=== PATIENT | female | born 1930 | race Caucasian/White ===

== ENCOUNTER → 2016-11-12 | Outpatient (CLI) | payer MEDICARE, MEDICAID | LOC: RAD 09:44 | PROVIDERS: ATTEND Surgery | DX: K85.10 Biliary acute pancreatitis without necrosis or infection (principal) | CPT/HCPCS: 74301 ==

== ENCOUNTER 2016-12-17 16:59 | Observation (INO) | payer MEDICARE, MEDICAID ==
[2016-12-17] MEDS ORDERED: ASPIRIN 81 MG TABLET, CHEWABLE PO ONE (17:02)
--- NOTE | 2016-12-17 17:33 | ER Document Report ---
ED Medical Screen (RME) - General Chief Complaint: Chest Pain Stated Complaint: CHEST PAIN Mode of Arrival: Wheelchair Information source: Patient Notes: Patient presents complaining of chest pain off and on since yesterday. Patient has shortness of breath off and on over the past several weeks. No nausea or vomiting hx: Hypertension, aplastic anemia, CHF I have greeted and performed a rapid initial assessment of this patient. A comprehensive ED assessment and evaluation of the patient, analysis of test results and completion of the medical decision making process will be conducted by additional ED providers. TRAVEL OUTSIDE OF THE [place] IN LAST 30 DAYS: No - Related Data Allergies/Adverse Reactions: No Known Allergies Allergy (Unverified 11/21/14 18:30) Past Medical History - Past Medical History Cardiac Medical History: Reports: Hx Congestive Heart Failure, Hx Hypercholesterolemia, Hx Hypertension Endocrine Medical History: Reports: Hx Hypothyroidism GI Medical History: Reports: Hx Gastroesophageal Reflux Disease Musculoskeltal Medical History: Reports Hx Arthritis Psychiatric Medical History: Reports: Hx Dementia Past Surgical History: Reports: Hx Abdominal Surgery - hernia repair, Hx Hysterectomy - Immunizations Hx Diphtheria, Pertussis, Tetanus Vaccination: No Physical Exam - Vital signs Vitals: Temp Pulse Resp BP Pulse Ox 98.0 F 117 H 20 111/68 94 12/17/16 17:25 12/17/16 17:25 12/17/16 17:25 12/17/16 17:25 12/17/16 17:25 - Cardiovascular Rhythm: Tachycardia Heart sounds: S1 appreciated, S2 appreciated Course - Vital Signs Vital signs: Temp Pulse Resp BP Pulse Ox 98.0 F 117 H 20 111/68 94 12/17/16 17:25 12/17/16 17:25 12/17/16 17:25 12/17/16 17:25 12/17/16 17:25
[2016-12-17 18:07] LABS: ABSOLUTE EOSINOPHILS # (AUTO) 0.2 10^3/uL (0.0-0.6); ABSOLUTE LYMPHOCYTES (AUTO) 1.4 10^3/uL (0.5-4.7); ABSOLUTE MONOCYTES (AUTO) 0.4 10^3/uL (0.1-1.4); ABSOLUTE NEUT (AUTO) 3.3 10^3/uL (1.7-8.2); BASOPHILS % (AUTO) 0.3 % (0-2); HEMATOCRIT 41.1 % (36.0-47.0); HEMOGLOBIN 13.3 g/dL (12.0-15.5); HGB HCT DIFFERENCE -1.2; MEAN CORPUSCULAR HEMOGLOBIN 27.8 pg (27.0-33.4); MEAN CORPUSCULAR HGB CONC 32.4 g/dL (32.0-36.0); MEAN CORPUSCULAR VOLUME 86 fl (80-97); MONOCYTES % (AUTO) 7.5 % (3-13); RED BLOOD COUNT 4.79 10^6/uL (3.72-5.28); RED CELL DISTRIBUTION WIDTH 15.3 % (11.5-14.0); SEGMENTED NEUTROPHILS % (AUTO) 62.2 % (42-78); WHITE BLOOD COUNT 5.3 10^3/uL (4.0-10.5)
[2016-12-17 18:28] LABS: ALANINE AMINOTRANSFERASE 19 U/L (9-52); ALBUMIN 4.1 g/dL (3.5-5.0); ALKALINE PHOSPHATASE 94 U/L (38-126); ANION GAP 10 (5-19); ASPARTATE AMINO TRANSFERASE 20 U/L (14-36); BILIRUBIN,TOTAL 0.5 mg/dL (0.2-1.3); BLOOD UREA NITROGEN 26 mg/dL (7-20); CALCIUM 9.7 mg/dL (8.4-10.2); CARBON DIOXIDE 27 mmol/L (22-30); CHLORIDE 104 mmol/L (98-107); CREATINE KINASE 39 U/L (30-135); CREATININE RESULT 0.86 mg/dL (0.52-1.25); GLUCOSE 98 mg/dL (75-110); POTASSIUM 4.1 mmol/L (3.6-5.0); SODIUM 140.8 mmol/L (137-145); TOTAL PROTEIN 6.4 g/dL (6.3-8.2)
[2016-12-17 18:37] LABS: CREATINE KINASE MB 1.87 ng/mL (<4.55)
--- NOTE | 2016-12-17 18:37 | ER Document Report ---
ED General - General Chief Complaint: Chest Pain Stated Complaint: CHEST PAIN Mode of Arrival: Wheelchair Information source: Patient, Relative Notes: This is a very pleasant 86-year-old female who been presents to the emergency department with chief complaint of chest pain and shortness of breath. She is somewhat of a difficult historian secondary to memory problems and mild dementia , but the history is augmented by her son who is a good historian. Patient states that this morning at about 0800 she developed some pain in the left anterior chest. This was associated with shortness of breath. Also at this time she had a near syncopal episode but she did not lose consciousness. She was able to sit down outside and catch her breath. This afternoon she had a regular scheduled follow-up appointment with her primary care physician. During that appointment she mentioned that she had some chest pain and shortness of breath today. Also at the appointment she was noted to be tachycardic with a pulse rate in the 120s. At that point it was recommended that she present to the emergency department for further evaluation. Currently the patient denies any active chest pain and states that she is feeling much better. She has no shortness of breath. She denies any recent fevers chills cough or congestion. TRAVEL OUTSIDE OF THE [place] IN LAST 30 DAYS: No - Related Data Allergies/Adverse Reactions: No Known Allergies Allergy (Unverified 11/21/14 18:30) Past Medical History - General Information source: Patient, Relative - Social History Smoking Status: Never Smoker Frequency of alcohol use: None Drug Abuse: None Family History: Reviewed & Not Pertinent, Hypertension Patient has suicidal ideation: No Patient has homicidal ideation: No - Past Medical History Cardiac Medical History: Reports: Hx Congestive Heart Failure, Hx Hypercholesterolemia, Hx Hypertension Endocrine Medical History: Reports: Hx Hypothyroidism Renal/ Medical History: Denies: Hx Peritoneal Dialysis GI Medical History: Reports: Hx Gastroesophageal Reflux Disease Musculoskeltal Medical History: Reports Hx Arthritis Psychiatric Medical History: Reports: Hx Dementia Past Surgical History: Reports: Hx Abdominal Surgery - hernia repair, Hx Hysterectomy - Immunizations Hx Diphtheria, Pertussis, Tetanus Vaccination: No Hx Pneumococcal Vaccination: 11/23/14 Review of Systems - Review of Systems Notes: REVIEW OF SYSTEMS: CONSTITUTIONAL : Denies fever, chills, or sweats. Denies recent illness. EENT: Denies eye, ear, throat, or mouth pain or symptoms. Denies nasal or sinus congestion. CARDIOVASCULAR: As per history of present illness RESPIRATORY: Denies cough, cold, or chest congestion. Patient reports occasional wheezing. Episode of dyspnea as per history of present illness GASTROINTESTINAL: Denies abdominal pain. Denies nausea, vomiting, or diarrhea. Denies constipation. GENITOURINARY: Denies difficulty urinating, painful urination, burning, frequency, or blood in urine. MUSCULOSKELETAL: Denies neck or back pain or joint pain. She has been seeing her primary care physician for lower extremity edema. SKIN: Denies rash or skin lesions. HEMATOLOGIC : Denies easy bruising or bleeding. LYMPHATIC: Denies swollen, enlarged glands. NEUROLOGICAL: Denies altered mental status or loss of consciousness. Denies headache. Denies weakness or paralysis or loss of use of either side. PSYCHIATRIC: Denies anxiety or stress or depression. ALL OTHER SYSTEMS REVIEWED AND NEGATIVE. Physical Exam - Vital signs Vitals: Temp Pulse Resp BP Pulse Ox 98.0 F 117 H 20 111/68 94 12/17/16 17:25 12/17/16 17:25 12/17/16 17:25 12/17/16 17:25 12/17/16 17:25 - Notes Notes: PHYSICAL EXAMINATION: GENERAL: Well-appearing elderly female, very pleasant and conversant, well- nourished and in no acute distress. HEAD: Atraumatic, normocephalic. EYES: Pupils equal round and reactive to light, extraocular movements intact, sclera anicteric, conjunctiva are normal. ENT: nares patent, oropharynx clear without exudates. Moist mucous membranes. NECK: Normal range of motion, supple without lymphadenopathy LUNGS: Breath sounds clear to auscultation bilaterally and equal. No wheezes rales or rhonchi. HEART: Regular rate and rhythm without murmurs ABDOMEN: Soft, nontender, normoactive bowel sounds. No guarding, no rebound. No masses appreciated. EXTREMITIES: Normal range of motion, 1+ BLE edema, symmetric NEUROLOGICAL: Cranial nerves grossly intact. Normal speech. Sensation intact , Motor strength equal and symmetric BUE/BLE PSYCH: Normal mood, normal affect. SKIN: Warm, Dry, normal turgor, no rashes or lesions noted. Course - Re-evaluation Re-evalutation: 12/17/16 20:48 Patient has remained stable in the emergency department and states she has no chest pain. However she has remained tachycardic with a heart rate of 111. Her troponin is negative as is her d-dimer. I am concerned with the episode of chest pain today along with the near syncope. We'll discuss with the hospitalist for admission for observation for chest pain. Patient and her are comfortable with this plan. All questions were answered. - Vital Signs Vital signs: Temp Pulse Resp BP Pulse Ox 98.0 F 117 H 20 146/106 H 93 12/17/16 17:25 12/17/16 17:25 12/17/16 21:34 12/17/16 21:34 12/17/16 21:34 - Laboratory Result Diagrams: 12/17/16 17:42 12/17/16 17:42 Laboratory results interpreted by me: 12/17/16 12/17/16 17:42 17:42 RDW 15.3 H Plt Count 130 L BUN 26 H - Diagnostic Test Radiology reviewed: Reports reviewed Radiology results interpreted by me: 12/17/16 18:39 Chest x-ray shows no acute cardiopulmonary process - EKG Interpretation by Me Additional EKG results interpreted by me: 12/17/16 18:38 EKG done at 1712 demonstrates sinus tachycardia with a rate of 112 she has LVH. There are no ST elevations or depressions present. Discharge - Discharge Clinical Impression: Chest tightness or pressure, Tachycardia, Near syncope Condition: Stable Disposition: ADMITTED OBSERVATION Admitting Provider: Hospitalist - Dr Nation Unit Admitted: Telemetry Referrals: DAVID APPLE MD [Primary Care Provider] - Follow up as needed
[2016-12-17 18:38] LABS: TROPONIN I < 0.012 ng/mL
--- NOTE | 2016-12-17 18:56 | EKG REPORT ---
SEVERITY:- ABNORMAL ECG - SINUS TACHYCARDIA WITH FIRST DEGREE AVB LAD, CONSIDER LAFB OR INFERIOR INFARCT CONSIDER LEFT VENTRICULAR HYPERTROPHY CONSIDER ANTERIOR INFARCT PROLONGED QT INTERVAL : Confirmed by: Gavin Cardenas MD 17-Dec-2016 18:56:28
[2016-12-17 19:00] LABS: PROTHROMBIN TIME 13.5 SEC (11.4-15.4)
[2016-12-17 19:01] LABS: PARTIAL THROMBOPLASTIN TIME 28.2 SEC (23.5-35.8)
[2016-12-17 19:35] LABS: D-DIMER < 0.27 ug/mL (0.00-0.50)
[2016-12-17] MEDS ORDERED: NORMAL SALINE 1000 ML 500 ML IV ONE (19:51)
[2016-12-17] MEDS ORDERED: METOPROLOL TARTRATE PF/INJ 5 MG/5 ML SDV IV ONE (22:11)
[2016-12-18] MEDS ORDERED: ENALAPRILAT DIHYDRATE INJ/PF 1.25 MG/1 ML SDV IV PRN (03:01)
--- NOTE | 2016-12-18 03:37 | PDOC H&P ---
History of Present Illness Admission Date/PCP: 12/17/16 22:23 DAVID APPLE MD Patient complains of: Chest pain, shortness of breath History of Present Illness: ROXANNE DE LA GARZA is a 86 year old female with underlying memory problems and dementia, along with hypertension, hyperlipidemia, hypothyroidism, reflux disease, chronic pain, chronic diastolic congestive heart failure by September 2016 echocardiogram in our facility, along with history of aplastic anemia, who presents to the emergency room for evaluation of above complaints. Patient has been discussed with emergency room physician who evaluated the patient. Patient herself is a fairly poor historian. Most questions are answered by "I' m not sure," or "I don't remember." Describes the onset of left anterior chest pain approximately 8 AM on the seventh with associated shortness of breath. Near syncopal episode. Was able to sit down and catch her breath. Went to see her primary care provider for a regularly scheduled appointment. chest pain was mentioned, and was noted to be tachycardic, with pulse rate in the 120s. Was urged to come to the emergency room for further evaluation of same. No recent fever chills, cough, congestion, nausea vomiting. Currently resting quietly, chest pain-free.. Laboratory results are listed in [employer] and are reviewed. X-ray summary results are listed below, with full report(s) reviewed. . EKG reviewed. And compared to a tracing from September 19 of last year. Social history/personal habits: . Lives with son. Retired. No use of alcohol tobacco or illicit drugs. Allergies/adverse reactions NKDA. Home medications Home medications initially autopopulated into [employer] may not accurately reflect patient's true medications, dosages, and/or frequencies. Unfortunately, patient uncertain of medications/dosages/frequencies. Order has been entered for staff to contact family, outpatient physician, and/or pharmacy to more accurately determine medications, dosages, and frequencies and to contact physician when that has been accomplished. REVIEW OF SYSTEMS: Constitutional: No fever or chills. Eyes: Wears glasses. ENT: No swallowing problems or complaints. Partial hearing loss, Right ear Pulmonary: Recent onset of mild cough and wheezing. Cardiovascular: See history and present illness. Gastrointestinal: No current complaints, including nausea or vomiting. Skin: No current complaints, including rashes. Hematologic: Easy bruising. Neurologic: No current complaints, including numbness or tingling. Musculoskeletal: Chronic back pain. Psychiatric: Mild depression; denies suicidal or homicidal ideation. Endocrine: No current complaints, including polyuria. Genitourinary: No current complaints, including dysuria. PHYSICAL EXAMINATION: 5 feet 6 inches tall. 83 kg. BMI 29.5 kg/m. Pulse 93 and regular. 142/98, manually on the left. 150/110, manually on the right. 95% saturation on room air. Respirations are 15 and unlabored. Slightly overweight otherwise well-nourished well-developed elderly female who appears a number of years younger than her stated age. Initially asleep, but awakens easily. Pleasant alert and cooperative. Mildly anxious, without agitation. Skin is warm and dry. No grossly obvious evidence of rash in areas of skin examined. No subcutaneous nodules palpated. ENT: Hearing grossly normal to normal conversation. Tongue midline on protrusion pink and slightly tacky. Eyes: No scleral icterus. Pupils equal and reactive to light at 4 mm. [place] conjunctivae. Neck is supple and nontender to gentle active range of motion and palpation. Midline trachea. No palpable thyroid nodule mass enlargement or tenderness. Lymphatic: No palpable cervical or clavicular nodes. Neck and lymphatic exams limited by patient body habitus. Psychiatric: At best fair insight into acute and chronic medical issues. Oriented to time location and why here. See history and present illness related to her being a poor historian. Lungs: Auscultation reveals clear and equal breath sounds bilaterally. No use of accessory respiratory muscles. Cardiovascular: Heart regular rate and rhythm, without gallop murmur or rub. No carotid or abdominal aortic bruits. No ankle or pedal edema. Faintly palpable dorsalis pedis pulses. Abdomen: soft, slightly distended nontender with positive bowel sounds. Unable to adequately evaluate abdomen for masses or organomegaly due to distention. Compression of neither her upper abdomen nor sternum reproduces her previously noted chest discomfort. Extremities: Feet are warm and dry. No calf tenderness to compression. No grossly obvious visual evidence of calf swelling. Gentle manipulation of lower extremities fails to reveal any obvious evidence of injury or instability to knees hips or ankles. Neurologic: Moves upper extremities grossly normally. Patellar reflexes absent. Absent Babinski. Light touch is intact at feet. Dorsiflexion and plantarflexion of feet 5 / 5 and symmetric. Past Medical History Past Medical History: See history and present illness. Cardiac Medical History: Reports: Congestive Heart Failure, Hyperlipidema, Hypertension Endocrine Medical History: Reports: Hypothyroidism GI Medical History: Reports: Gastroesophageal Reflux Disease Musculoskeltal Medical History: Reports: Arthritis Psychiatric Medical History: Reports: Dementia Hematology: Reports: Anemia - aplastic Past Surgical History Past Surgical History: Reports: Hysterectomy, Other - Cholecystostomy tube placement 2016. Social History Information Source: Patient, Emergency Med Personnel, [facility] Records Lives with: Family Smoking Status: Never Smoker Frequency of Alcohol Use: None Hx Recreational Drug Use: No Drugs: None - Advance Directive Resuscitation Status: Full Code Surrogate healthcare decision maker:: Son Sanjay. Family History Family History: Reviewed & Not Pertinent, Hypertension Parental Family History Reviewed: Yes Children Family History Reviewed: Yes Sibling(s) Family History Reviewed.: Yes Medication/Allergy Home Medications: RX: Atenolol [Tenormin 100 mg Tablet] 100 mg PO DAILY 12/18/16 RX: Bumetanide [Bumex 0.5 mg Tablet] 0.5 mg PO DAILY 12/18/16 RX: Donepezil HCl [Aricept 5 mg Tablet] 5 mg PO QPM 12/18/16 RX: Gabapentin [Neurontin 100 mg Capsule] 200 mg PO TID 12/18/16 RX: Hydrocodone/Acetaminophen [Hydrocodon-Acetaminophen 5-325] 1 each PO TIDP PRN 12/18/16 RX: Omeprazole 20 mg PO DAILY 12/18/16 RX: Paroxetine HCl [Paxil] 10 mg PO DAILY 12/18/16 RX: Spironolactone [Aldactone 25 mg Tablet] 12.5 mg PO Q12 12/18/16 Rosuvastatin Calcium [Crestor 5 mg Tablet] 5 mg PO DAILY 12/18/16 Allergies/Adverse Reactions: No Known Allergies Allergy (Unverified 11/21/14 18:30) Physical Exam Vital Signs: Temp Pulse Resp BP Pulse Ox 98.0 F 117 H 11 L 142/98 H 94 12/17/16 17:25 12/17/16 17:25 12/18/16 03:00 12/18/16 03:01 12/18/16 03:00 Results Impressions: Chest X-Ray 12/17/16 17:02 IMPRESSION: No acute cardiopulmonary findings. Assessment & Plan - Diagnosis (1) Chest pain Qualifiers: Chest pain type: unspecified Qualified Code(s): R07.9 - Chest pain, unspecified Is this a current diagnosis for this admission?: YesPlan: Patient will be placed in observation bed under chest pain protocol. Patient understands to notify staff should chest pain recur. Serial troponin's . Repeat EKG. lipid panel. I have strongly encouraged patient not to get out of bed without notifying staff , to avoid a fall with injury. Knee high SCDs for DVT prophylaxis, along with subcutaneous Lovenox. Impression and plans were discussed with patient, who concurs. Time spent in evaluation and management of patient: 60 minutes. (2) Hypertensive urgency Is this a current diagnosis for this admission?: YesPlan: Patient states she has not had her evening medication. Gradual blood pressure control. Vital sign parameters have been listed in admission orders. (3) Near syncope Is this a current diagnosis for this admission?: YesPlan: Orthostatic vital signs every 4 hours while awake, starting at 7 AM today. (4) Dementia Qualifiers: Dementia type: unspecified type Dementia behavioral disturbance: without behavioral disturbance Qualified Code(s): F03.90 - Unspecified dementia without behavioral disturbance Is this a current diagnosis for this admission?: YesPlan: Follow clinically at this point in time. (5) Chronic diastolic CHF (congestive heart failure) Is this a current diagnosis for this admission?: YesPlan: No evidence of acute exacerbation of same. Follow clinically at this point in time.Resume home medications as appropriate once these have been determined and reviewed. (6) Hypothyroidism Qualifiers: Hypothyroidism type: unspecified Qualified Code(s): E03.9 - Hypothyroidism, unspecified Is this a current diagnosis for this admission?: YesPlan: TSH pending. Resume home medications as appropriate once these have been determined and reviewed. (7) Thrombocytopenia Is this a current diagnosis for this admission?: YesPlan: Long-standing problem for patient. History of aplastic anemia, per old records.
[2016-12-18 04:29] LABS: CHOLESTEROL 158.21 mg/dL (0-200); Direct HDL 45 mg/dL (>40); TRIGLYCERIDES 122 mg/dL (<150)
[2016-12-18 04:40] LABS: DIRECT LDL 99 mg/dL (<100)
[2016-12-18] MEDS ORDERED: LANSOPRAZOLE 30 MG TAB.RAP.DR PO SCH (06:00)
[2016-12-18] MEDS: ACETAMINOPHEN 325 MG TABLET PO PRN ×2 (06:40→11:04)
[2016-12-18] MEDS ORDERED: INFLUENZA ADLT QUAD (36MOS+) 2016-17 VAC 0.5 ML SYR IM PRN (06:46)
--- NOTE | 2016-12-18 08:09 | EKG REPORT ---
SEVERITY:- ABNORMAL ECG - SINUS RHYTHM FIRST DEGREE AV BLOCK LAD, CONSIDER LAFB OR INFERIOR INFARCT : Confirmed by: Gavin Cardenas MD 18-Dec-2016 08:08:22
[2016-12-18] MEDS ORDERED: ENOXAPARIN SODIUM INJ 40 MG/0.4 ML DISP.SYRIN SUBCUT SCH (10:00)
[2016-12-18] MEDS ORDERED: ASPIRIN 81 MG TABLET, ENT COATED PO SCH (10:00)
[2016-12-18 11:59] VITALS: BP 150/110
--- NOTE | 2016-12-18 13:52 | EKG REPORT ---
SEVERITY:- ABNORMAL ECG - SINUS RHYTHM FIRST DEGREE AV BLOCK LAD, CONSIDER LAFB OR INFERIOR INFARCT PROBABLE ANTEROSEPTAL INFARCT, AGE INDETERM : Confirmed by: Gavin Cardenas MD 18-Dec-2016 13:50:49
--- NOTE | 2016-12-18 14:02 | PDOC DISCHARGE SUMMARY ---
General - Admit/Disc Date/PCP Admission Date/Primary Care Provider: 12/18/16 03:21 DAVID APPLE MD Discharge Date: 12/18/16 - Discharge Diagnosis (1) Chest pain Is this a current diagnosis for this admission?: YesSummary: Ruled out for acute coronary syndrome Troponins < 0.12. Symptoms more suggestive of GERD. She takes omeprazole as needed. Son did not wish to have her do stress test (2) Hypertension Is this a current diagnosis for this admission?: YesSummary: Patient is presently normotensive continue current medications. (3) Chronic diastolic heart failure Is this a current diagnosis for this admission?: YesSummary: Patient's last echo here 09/25. Showed normal LVEF and mild grade II/IV diastolic heart failure - Additional Information Resuscitation Status: Full Code Discharge Diet: Regular Discharge Activity: Activity As Tolerated, Balance Activity w/Rest Home Medications: Atenolol [Tenormin 100 mg Tablet] 100 mg PO DAILY 12/18/16 Bumetanide [Bumex 0.5 mg Tablet] 0.5 mg PO DAILY 12/18/16 Donepezil HCl [Aricept 5 mg Tablet] 5 mg PO QPM 12/18/16 Gabapentin [Neurontin 100 mg Capsule] 200 mg PO TID 12/18/16 Hydrocodone/Acetaminophen [Hydrocodon-Acetaminophen 5-325] 1 each PO TIDP PRN Omeprazole 20 mg PO DAILY 12/18/16 Paroxetine HCl [Paxil] 10 mg PO DAILY 12/18/16 Rosuvastatin Calcium [Crestor 5 mg Tablet] 5 mg PO DAILY 12/18/16 Spironolactone [Aldactone 25 mg Tablet] 12.5 mg PO Q12 12/18/16 History of Present Illness Patient complains of: Chest pain History of Present Illness: ROXANNE DE LA GARZA is a 86 year old female with history of GERD, essential hypertension, chronic grade II/IV diastolic heart failure and dementia. She lives with her son, who had taken her to see her primary care provider and sent her to the ED for further workup. Initial ecg and troponin were negative. The patient was referred to the hospitalist's service for observation admission. Hospital Course Hospital Course: Patient was admitted to [facility] on telemetry. She had no further chest pain or shortness of breath. No events on telemetry. She was ambulatory on room air. Her vitals remained stable. Serial troponins were done and were all < 0.12. Patient remained pleasantly confused. Discussed with son. He wishes medical management for her so stress test was done due to her age and dementia. Physical Exam Vital Signs: Temp Pulse Resp BP Pulse Ox 97.4 F 96 16 150/110 H 94 12/18/16 11:55 12/18/16 11:55 12/18/16 11:55 12/18/16 11:55 12/18/16 11:55 Intake & Output 12/17/16 12/18/16 12/19/16 06:59 06:59 06:59 Intake Total 3 Balance 3 General appearance: PRESENT: no acute distress, well-developed, well-nourished Head exam: PRESENT: atraumatic, normocephalic Eye exam: PRESENT: conjunctiva pink, EOMI, PERRLA. ABSENT: scleral icterus Ear exam: PRESENT: normal external ear exam Mouth exam: PRESENT: moist, tongue midline Neck exam: ABSENT: carotid bruit, JVD, lymphadenopathy, thyromegaly Respiratory exam: PRESENT: clear to auscultation baldemar. ABSENT: rales, rhonchi, wheezes Cardiovascular exam: PRESENT: RRR. ABSENT: diastolic murmur, rubs, systolic murmur Pulses: PRESENT: normal dorsalis pedis pul Vascular exam: PRESENT: normal capillary refill GI/Abdominal exam: PRESENT: normal bowel sounds, soft. ABSENT: distended, guarding, mass, organolmegaly, rebound, tenderness Rectal exam: PRESENT: deferred Extremities exam: PRESENT: full ROM. ABSENT: calf tenderness, clubbing, pedal edema Neurological exam: PRESENT: alert, awake, oriented to person, CN II-XII grossly intact Psychiatric exam: PRESENT: appropriate affect, normal mood. ABSENT: homicidal ideation, suicidal ideation Skin exam: PRESENT: dry, intact, warm. ABSENT: cyanosis, rash Results Laboratory Results: 12/18/16 12/18/16 03:29 03:29 Triglycerides 122 Cholesterol 158.21 LDL Cholesterol Direct 99 VLDL Cholesterol 24.0 HDL Cholesterol 45 TSH 0.91 12/18/16 12/18/16 03:29 09:35 Troponin I < 0.012 < 0.012 Impressions: Chest X-Ray 12/17/16 17:02 IMPRESSION: No acute cardiopulmonary findings. Qualifiers PATEINT BEING DISCHARGED WITH ANY OF THE FOLLOWING DIAGNOSIS?: No Plan Discharge Plan: Home with son Time Spent: Less than 30 Minutes
== END 2016-12-18 13:17 | disposition home or self-care (01) ==
LOC: ER 16:59 → EH 22:23 → UNDOADMOB 22:23 → EH 12-18 03:21 → 3N 12-18 05:52
PROVIDERS: ADMIT Family Medicine; ATTEND Family Medicine
DX: R07.9 Chest pain, unspecified (principal); I16.0 Hypertensive urgency; R55 Syncope and collapse; R06.02 Shortness of breath; D69.6 Thrombocytopenia, unspecified; E78.5 Hyperlipidemia, unspecified; E03.9 Hypothyroidism, unspecified; K21.9 Gastro-esophageal reflux disease without esophagitis; G89.29 Other chronic pain; I50.32 Chronic diastolic (congestive) heart failure; F03.90 Unspecified dementia, unspecified severity, without behavioral disturbance, psychotic disturbance, mood disturbance, and anxiety; Z79.899 Other long term (current) drug therapy; Z90.710 Acquired absence of both cervix and uterus; Z23 Encounter for immunization
CPT/HCPCS: 93005 ×2; 99285; 96361; 96374; 36415 ×2; 82553; 82550; 84443; 85025; 85610; 85730; 80053; 84484 ×2; 85379; 80061; 71010; 90686; 93010 ×2; G0378 ×2; A9270 ×3; J3490 ×2; J7030

== ENCOUNTER 2017-05-19 12:07 | Inpatient (IN) | payer MEDICARE, MEDICAID ==
--- NOTE | 2017-05-19 12:51 | RADIOLOGY REPORT (SQ) ---
EXAM DESCRIPTION: CHEST SINGLE VIEW COMPLETED DATE/TIME: 05/19/2017 12:24 pm REASON FOR STUDY: bed mp stroke alert COMPARISON: Chest films 09/19/2016, 12/17/2016 EXAM PARAMETERS: NUMBER OF VIEWS: One view. TECHNIQUE: Single frontal radiographic view of the chest acquired. RADIATION DOSE: NA LIMITATIONS: None. FINDINGS: LUNGS AND PLEURA: No opacities, masses or pneumothorax. No pleural effusion. MEDIASTINUM AND HILAR STRUCTURES: No masses. Contour normal. HEART AND VASCULAR STRUCTURES: Mild cardiomegaly, stable BONES: Convex leftward lower thoracic/lumbar curvature HARDWARE: None in the chest. OTHER: No other significant finding. IMPRESSION: NO ACUTE RADIOGRAPHIC FINDING IN THE CHEST. TECHNICAL DOCUMENTATION: JOB ID: [id number]
--- NOTE | 2017-05-19 12:52 | RADIOLOGY REPORT (SQ) ---
EXAM DESCRIPTION: CT HEAD WITHOUT COMPLETED DATE/TIME: 05/19/2017 12:28 pm REASON FOR STUDY: bed mp stroke alert COMPARISON: November 2014 TECHNIQUE: Axial images acquired through the brain without intravenous contrast. Images reviewed wi th bone, brain and subdural windows. Images stored on PACS. All CT scanners at this facility use dose modulation, iterative reconstruction, and/or weight based d osing when appropriate to reduce radiation dose to as low as reasonably achievable (ALARA). [facility]: Dose Right [facility]: CareDose [facility]: Dose Right [facility]: Teradose 4D [facility]: Smart Penxy RADIATION DOSE: Up-to-date CT equipment and radiation dose reduction techniques were employed. CTDIv ol: 64.6 mGy. DLP: 1680 mGy-cm. mGy. LIMITATIONS: None. FINDINGS: VENTRICLES: Prominent. CEREBRUM: No masses. No hemorrhage. No midline shift. Areas of low density in the white matter mos t likely due to chronic micro-vascular ischemic change. No evidence for acute infarction. CEREBELLUM: No masses. No hemorrhage. No alteration of density. No evidence for acute infarction. EXTRAAXIAL SPACES: Mild age-related involutional change. No fluid collections. No masses. ORBITS AND GLOBE: No intra- or extraconal masses. Normal contour of globe without masses. CALVARIUM: No fracture. PARANASAL SINUSES: No fluid or mucosal thickening. SOFT TISSUES: No mass or hematoma. OTHER: No other significant finding. IMPRESSION: MILD CHRONIC CHANGES OF ATROPHY AND MICROVASCULAR ISCHEMIA. NO ACUTE PROCESS. TECHNICAL DOCUMENTATION: JOB ID: [id number] Quality ID # [id number]: Final reports with documentation of one or more dose reduction techniques (e.g., Au tomated exposure control, adjustment of the mA and/or kV according to patient size, use of iterative reconstruction technique) 2010 [employer]- All Rights Reserved
[2017-05-19 13:11] LABS: ABSOLUTE LYMPHOCYTES (AUTO) 0.6 10^3/uL (0.5-4.7); ABSOLUTE MONOCYTES (AUTO) 0.4 10^3/uL (0.1-1.4); ABSOLUTE NEUT (AUTO) 5.9 10^3/uL (1.7-8.2); BASOPHILS % (AUTO) 0.2 % (0-2); EOSINOPHILS % (AUTO) 0.5 % (0-6); HEMATOCRIT 43.4 % (36.0-47.0); HEMOGLOBIN 13.5 g/dL (12.0-15.5); HGB HCT DIFFERENCE -2.9; LYMPHOCYTES % (AUTO) 8.5 % (13-45); MEAN CORPUSCULAR HEMOGLOBIN 26.3 pg (27.0-33.4); MEAN CORPUSCULAR HGB CONC 31.1 g/dL (32.0-36.0); MEAN CORPUSCULAR VOLUME 85 fl (80-97); MONOCYTES % (AUTO) 5.9 % (3-13); PROTHROMBIN TIME 13.1 SEC (11.4-15.4); RED BLOOD COUNT 5.13 10^6/uL (3.72-5.28); RED CELL DISTRIBUTION WIDTH 15.9 % (11.5-14.0); SEGMENTED NEUTROPHILS % (AUTO) 84.9 % (42-78); WHITE BLOOD COUNT 6.9 10^3/uL (4.0-10.5)
[2017-05-19 13:12] LABS: PARTIAL THROMBOPLASTIN TIME 25.9 SEC (23.5-35.8)
[2017-05-19] MEDS ORDERED: ACETAMINOPHEN 325 MG TABLET PO ONE (13:18)
--- NOTE | 2017-05-19 13:24 | ER Document Report ---
ED General - General Chief Complaint: S/S of Possible Stroke Stated Complaint: POSSIBLE STROKE Time Seen by Provider: 05/19/17 12:56 Mode of Arrival: Medic Information source: Patient, Relative TRAVEL OUTSIDE OF THE [place] IN LAST 30 DAYS: No - HPI Notes: Patient is a 86-year-old female presents to emergency department with report of a history of hypertension and dementia with report of patient having an altered state when she was on the toilet and went unconscious but breathing for anywhere from 5-10 minutes, she was minimally responsive for about 15 minutes and then recovered by the time EMS arrived to pick her up. The patient had a normal blood sugar of 106 and was otherwise hypertensive 184/105 when she was picked up. There was shaking, but no obvious seizure activity. Patient on questioning describes a mild headache, not the worst of her life. There is no head injury. She denies any neck pain or chest pain or abdominal pain. There was more of a generalized weakness, and patient denies any one- sided weakness or numbness. - Related Data Allergies/Adverse Reactions: No Known Allergies Allergy (Unverified 11/21/14 18:30) Past Medical History - General Information source: Patient, Relative Cannot obtain history due to: Dementia - Social History Smoking Status: Never Smoker Frequency of alcohol use: None Drug Abuse: None Lives with: Family Family History: Reviewed & Not Pertinent, Hypertension - Past Medical History Cardiac Medical History: Reports: Hx Congestive Heart Failure, Hx Hypercholesterolemia, Hx Hypertension Endocrine Medical History: Reports: Hx Hypothyroidism Renal/ Medical History: Denies: Hx Peritoneal Dialysis GI Medical History: Reports: Hx Gastroesophageal Reflux Disease Musculoskeltal Medical History: Reports Hx Arthritis Psychiatric Medical History: Reports: Hx Dementia, Hx Depression Past Surgical History: Reports: Hx Abdominal Surgery - hernia repair, Hx Hysterectomy, Other - Cholecystostomy tube placement 2015. - Immunizations Hx Diphtheria, Pertussis, Tetanus Vaccination: No Hx Pneumococcal Vaccination: 11/23/14 Review of Systems - Review of Systems Notes: no and is not . EMS on by REVIEW OF SYSTEMS: CONSTITUTIONAL : Denies fever, chills, or sweats. Denies recent illness. EENT: Denies eye, ear, throat, or mouth pain or symptoms. Denies nasal or sinus congestion or discharge. Denies throat, tongue, or mouth swelling or difficulty swallowing. CARDIOVASCULAR: Denies chest pain. Denies palpitations or racing or irregular heart beat. Denies ankle edema. RESPIRATORY: Denies cough, cold, or chest congestion. Denies shortness of breath, difficulty breathing, or wheezing. GASTROINTESTINAL: Denies abdominal pain or distention. Denies nausea, vomiting , or diarrhea. Denies blood in vomitus, stools, or per rectum. Denies black, tarry stools. Denies constipation. GENITOURINARY: Denies difficulty urinating, painful urination, burning, frequency, blood in urine, or discharge. FEMALE GENITOURINARY: Denies vaginal bleeding, heavy or abnormal periods, irregular periods. Denies vaginal discharge or odor. MUSCULOSKELETAL: Denies back or neck pain or stiffness. Denies joint pain or swelling. SKIN: Denies rash, lesions or sores. HEMATOLOGIC : Denies easy bruising or bleeding. LYMPHATIC: Denies swollen, enlarged glands. NEUROLOGICAL: Denies dizziness or lightheadedness. Denies weakness or paralysis or loss of use of either side. Denies problems with gait or speech. Denies sensory loss, numbness, or tingling. No obvious seizure activity. PSYCHIATRIC: Denies anxiety or stress. Denies depression, suicidal ideation, or homicidal ideation. ALL OTHER SYSTEMS REVIEWED AND NEGATIVE. Dictation was performed using [employer] voice recognition software Physical Exam - Vital signs Vitals: Temp 98.6 F 05/19/17 12:49 - Notes Notes: PHYSICAL EXAMINATION: GENERAL: Well-appearing, well-nourished and in no acute distress. HEAD: Atraumatic, normocephalic. EYES: Pupils equal round and reactive to light, extraocular movements intact, conjunctiva are normal. ENT: Nares patent, oropharynx clear without exudates. Moist mucous membranes. NECK: Normal range of motion, supple without lymphadenopathy no carotid bruits. LUNGS: Breath sounds clear to auscultation bilaterally and equal. No wheezes rales or rhonchi. HEART: Regular rate and rhythm without murmurs ABDOMEN: Soft, nontender, nondistended abdomen. No guarding, no rebound. No masses appreciated. Obese Female : deferred Musculoskeletal: Normal range of motion, no pitting or edema. No cyanosis. NEUROLOGICAL: Cranial nerves grossly intact. Normal speech. Normal sensory, motor exams. Alert to person and place, per her baseline PSYCH: Normal mood, normal affect. SKIN: Warm, Dry, normal turgor, no rashes or lesions noted. Course - Re-evaluation Re-evalutation: 05/19/17 15:[address] negative for acute intracranial abnormality. There was evidence for microvascular changes consistent with age and history of dementia. Chest x-ray was negative. Patient remained mildly hypertensive repeat blood pressure 188/92. No evidence for congestive heart failure. Patient was watched on the field reviewer without any noted ectopy or other abnormality. Cannot exclude TIA versus cardiac arrhythmia. There is no evidence for hypoglycemia or significant anemia or renal insufficiency or UTI. Discussion was undertaken with the patient and her family and they were in agreement with admission for observation and further evaluation. Discussion was undertaken with Dr. Denton who agreed to admit the patient for further care. 05/19/17 15:13 - Vital Signs Vital signs: Temp Pulse Resp BP Pulse Ox 98.6 F 78 23 H 163/47 H 96 05/19/17 12:49 05/19/17 15:00 05/19/17 15:00 05/19/17 15:00 05/19/17 15:00 - Laboratory Result Diagrams: 05/19/17 12:59 05/19/17 12:59 Laboratory results interpreted by me: 05/19/17 05/19/17 05/19/17 12:59 12:59 13:05 MCH 26.3 L MCHC 31.1 L RDW 15.9 H Plt Count 134 L Seg Neutrophils % 84.9 H Lymphocytes % 8.5 L Carbon Dioxide 33 H Urine Protein 30 H Urine Ascorbic Acid 20 H - EKG Interpretation by Ny EKG shows normal: Sinus rhythm Additional EKG results interpreted by al: 05/19/17 13:23 EKG as interpreted by al showed normal sinus rhythm heart rate of 65. There was no gross evidence for acute AR or ischemia identified. There is a left anterior fascicular block noted with borderline left ventricular hypertrophy. There is no significant change from previous EKG reviewed from 12/18/16. Critical Care Note - Critical Care Note Total time excluding time spent on procedures (mins): 33 Discharge - Discharge Clinical Impression: Hypertension Syncope Qualifiers: Syncope type: unspecified Qualified Code(s): R55 - Syncope and collapse Admitting Provider: Hospitalist
[2017-05-19 13:26] LABS: APPEARANCE,URINE SLIGHTLY-CLOUDY; BILIRUBIN,URINE NEGATIVE (NEGATIVE); GLUCOSE, URINE NEGATIVE (NEGATIVE); KETONES,URINE NEGATIVE (NEGATIVE); LEUKOCYTE ESTERASE,URINE NEGATIVE (NEGATIVE); NITRITE,URINE NEGATIVE (NEGATIVE); PROTEIN,URINE 30 mg/dL (NEGATIVE); UROBILINOGEN,URINE NEGATIVE mg/dL (<2.0)
[2017-05-19 13:27] LABS: ALANINE AMINOTRANSFERASE 25 U/L (9-52); ALBUMIN 4.3 g/dL (3.5-5.0); ALKALINE PHOSPHATASE 97 U/L (38-126); ANION GAP 9 (5-19); ASPARTATE AMINO TRANSFERASE 23 U/L (14-36); BILIRUBIN,DIRECT 0.2 mg/dL (0.0-0.4); BILIRUBIN,TOTAL 0.6 mg/dL (0.2-1.3); BLOOD UREA NITROGEN 20 mg/dL (7-20); CALCIUM 9.5 mg/dL (8.4-10.2); CARBON DIOXIDE 33 mmol/L (22-30); CHLORIDE 101 mmol/L (98-107); CREATINE KINASE 37 U/L (30-135); GLUCOSE 105 mg/dL (75-110); POTASSIUM 4.3 mmol/L (3.6-5.0); SODIUM 143.1 mmol/L (137-145); TOTAL PROTEIN 7.3 g/dL (6.3-8.2)
[2017-05-19 13:38] LABS: CREATINE KINASE MB 1.52 ng/mL (<4.55)
[2017-05-19 13:39] LABS: TROPONIN I < 0.012 ng/mL
[2017-05-19] MEDS ORDERED: DOCUSATE SODIUM 100 MG CAPSULE PO PRN (16:05)
[2017-05-19] MEDS ORDERED: ONDANSETRON HCL INJ/PF 4 MG/2 ML SDV IV PRN (16:05)
[2017-05-19] MEDS ORDERED: MAGNESIUM HYDROXIDE SUSP 30 ML UDCUP PO PRN (16:05)
--- NOTE | 2017-05-19 16:35 | PDOC H&P ---
History of Present Illness Patient complains of: Altered mental status according to family, who are not present and available. Hypertensive urgency History of Present Illness: Jessenia Goodrich is an 86-year-old female who to emergency department via ems with report of a past medical history of GERD,essential hypertension, chronic grade II/IV diastolic heart failure and vascular dementia with report of patient having an altered state when she was on the toilet and went unresponsive to verbal stimuli for approximately 5-10 minutes. Her daughter-in- law states her eyes glazed and she was nonverbal. She states she began shaking shortly thereafter and then became alert. She denies any injury or falls to the floor during this time. She was noted to be extremely hypertensive upon EMS arrival to her home with a blood pressure of 184/110. She has had no recent illnesses according to family were not present at room at this time. Patient on questioning describes a mild headache, not the worst of her life. There is no head injury. She denies any neck pain or chest pain or abdominal pain. There was more of a generalized weakness, and patient denies any one- sided weakness or numbness. She is presently disoriented 3, she does know her name and thinks the year is 1971. 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 Social History Information Source: Emergency Med Personnel, [facility] Records Lives with: Family Smoking Status: Never Smoker Frequency of Alcohol Use: None Hx Recreational Drug Use: No Drugs: None Hx Prescription Drug Abuse: No - Advance Directive Resuscitation Status: Full Code Surrogate healthcare decision maker:: Wagner Grace, no family is presently available Family History Family History: Hypertension Parental Family History Reviewed: No Children Family History Reviewed: Unknown Sibling(s) Family History Reviewed.: Unknown Medication/Allergy Home Medications: Atenolol [Tenormin 100 mg Tablet] 100 mg PO DAILY 12/18/16 Bumetanide [Bumex 0.5 mg Tablet] 0.5 mg PO DAILY 12/18/16 Donepezil HCl [Aricept 5 mg Tablet] 5 mg PO QPM 12/18/16 Gabapentin [Neurontin 100 mg Capsule] 200 mg PO TID 12/18/16 Hydrocodone/Acetaminophen [Hydrocodon-Acetaminophen 5-325] 1 each PO TIDP PRN Omeprazole 20 mg PO DAILY 12/18/16 Paroxetine HCl [Paxil] 10 mg PO DAILY 12/18/16 Rosuvastatin Calcium [Crestor 5 mg Tablet] 5 mg PO DAILY 12/18/16 Spironolactone [Aldactone 25 mg Tablet] 12.5 mg PO Q12 12/18/16 Allergies/Adverse Reactions: No Known Allergies Allergy (Unverified 11/21/14 18:30) Review of Systems ROS unobtainable: Due to mental status Physical Exam Vital Signs: Temp Pulse Resp BP Pulse Ox 98.6 F 78 14 138/102 H 93 05/19/17 12:49 05/19/17 15:00 05/19/17 16:01 05/19/17 16:01 05/19/17 16:01 General appearance: PRESENT: no acute distress, obese, well-developed, well- nourished Head exam: PRESENT: atraumatic, normocephalic Eye exam: PRESENT: conjunctiva pink, EOMI, PERRLA. ABSENT: scleral icterus Ear exam: PRESENT: normal external ear exam Mouth exam: PRESENT: moist, tongue midline Neck exam: ABSENT: carotid bruit, JVD, lymphadenopathy, thyromegaly Respiratory exam: PRESENT: accessory muscle use Cardiovascular exam: PRESENT: RRR. ABSENT: diastolic murmur, rubs, systolic murmur Pulses: PRESENT: normal dorsalis pedis pul Vascular exam: PRESENT: normal capillary refill GI/Abdominal exam: PRESENT: normal bowel sounds, soft. ABSENT: distended, guarding, mass, organolmegaly, rebound, tenderness Rectal exam: PRESENT: deferred Extremities exam: PRESENT: full ROM. ABSENT: calf tenderness, clubbing, pedal edema Musculoskeletal exam: PRESENT: full ROM, normal inspection Neurological exam: PRESENT: alert, altered, CN II-XII grossly intact Psychiatric exam: PRESENT: flat affect Skin exam: PRESENT: dry, intact, warm. ABSENT: cyanosis, rash Results Laboratory Results: 05/19/17 12:59 05/19/17 12:59 05/19/17 05/19/17 05/19/17 12:59 12:59 12:59 WBC 6.9 RBC 5.13 Hgb 13.5 Hct 43.4 MCV 85 MCH 26.3 L MCHC 31.1 L RDW 15.9 H Plt Count 134 L Seg Neutrophils % 84.9 H Lymphocytes % 8.5 L Monocytes % 5.9 Eosinophils % 0.5 Basophils % 0.2 Absolute Neutrophils 5.9 Absolute Lymphocytes 0.6 Absolute Monocytes 0.4 Absolute Eosinophils 0.0 Absolute Basophils 0.0 Sodium 143.1 Potassium 4.3 Chloride 101 Carbon Dioxide 33 H Anion Gap 9 BUN 20 Creatinine 0.70 Est GFR ( Amer) > 60 Est GFR (Non-Af Amer) > 60 Glucose 105 Calcium 9.5 Total Bilirubin 0.6 AST 23 ALT 25 Alkaline Phosphatase 97 Total Protein 7.3 Albumin 4.3 Lipase 226.0 Urine Color Urine Appearance Urine pH Ur Specific [place] Urine Protein Urine Glucose (UA) Urine Ketones Urine Blood Urine Nitrite Ur Leukocyte Esterase Urine WBC (Auto) Urine RBC (Auto) 05/19/17 13:05 WBC RBC Hgb Hct MCV MCH MCHC RDW Plt Count Seg Neutrophils % Lymphocytes % Monocytes % Eosinophils % Basophils % Absolute Neutrophils Absolute Lymphocytes Absolute Monocytes Absolute Eosinophils Absolute Basophils Sodium Potassium Chloride Carbon Dioxide Anion Gap BUN Creatinine Est GFR ( Amer) Est GFR (Non-Af Amer) Glucose Calcium Total Bilirubin AST ALT Alkaline Phosphatase Total Protein Albumin Lipase Urine Color YELLOW Urine Appearance SLIGHTLY-CLOUDY Urine pH 7.0 Ur Specific [place] 1.010 Urine Protein 30 H Urine Glucose (UA) NEGATIVE Urine Ketones NEGATIVE Urine Blood NEGATIVE Urine Nitrite NEGATIVE Ur Leukocyte Esterase NEGATIVE Urine WBC (Auto) 2 Urine RBC (Auto) 1 05/19/17 05/19/17 12:59 12:59 Creatine Kinase 37 CK-MB (CK-2) 1.52 Troponin I < 0.012 Impressions: Chest X-Ray 05/19/17 12:12 IMPRESSION: NO ACUTE RADIOGRAPHIC FINDING IN THE CHEST. Head CT 05/19/17 12:12 IMPRESSION: MILD CHRONIC CHANGES OF ATROPHY AND MICROVASCULAR ISCHEMIA. NO ACUTE PROCESS. Assessment & Plan - Diagnosis (1) Altered awareness, transient Is this a current diagnosis for this admission?: YesPlan: Patient according to family had approximately 5-10 minute period of non - responsiveness while sitting on the toilet. She is now alert and conversive, most likely related to hypertensive urgency. Blood pressure was extremely elevated upon EMS arrival on EMS arrival. (2) Dementia Qualifiers: Dementia type: unspecified type Dementia behavioral disturbance: without behavioral disturbance Qualified Code(s): F03.90 - Unspecified dementia without behavioral disturbance Is this a current diagnosis for this admission?: Yes (3) GERD (gastroesophageal reflux disease) Qualifiers: Esophagitis presence: without esophagitis Qualified Code(s): K21.9 - Gastro-esophageal reflux disease without esophagitis Is this a current diagnosis for this admission?: YesPlan: Continue current medications. (4) Hyperlipidemia Qualifiers: Hyperlipidemia type: other hyperlipidemia Qualified Code(s): E78.4 - Other hyperlipidemia Is this a current diagnosis for this admission?: YesPlan: Continue statin. (5) Hypertensive urgency Is this a current diagnosis for this admission?: YesPlan: Continue home blood pressure medications and as needed antihypertensive (6) Chronic diastolic CHF (congestive heart failure) Is this a current diagnosis for this admission?: Yes (7) Hypothyroidism Qualifiers: Hypothyroidism type: acquired Qualified Code(s): E03.9 - Hypothyroidism, unspecified Is this a current diagnosis for this admission?: YesPlan: Continue levoxyl - Time Time Spent: 50 to 70 Minutes Critical Time spent with patient: 35 or more minutes Medications reviewed and adjusted accordingly: Yes Anticipated discharge: Home with Homehealth Within: within 24 hours
[2017-05-19] MEDS ORDERED: ENOXAPARIN SODIUM INJ 30 MG/0.3 ML DISP.SYRIN SUBCUT ONE (18:00)
[2017-05-19] MEDS: ACETAMINOPHEN 325 MG TABLET PO PRN ×2 (18:04→23:50)
--- NOTE | 2017-05-19 21:12 | EKG REPORT ---
SEVERITY:- ABNORMAL ECG - SINUS RHYTHM PROBABLE LEFT ATRIAL ABNORMALITY LEFT ANTERIOR FASCICULAR BLOCK PROBABLE LEFT VENTRICULAR HYPERTROPHY : Confirmed by: Gavin Cardenas MD 19-May-2017 21:11:50
[2017-05-19] MEDS: ATORVASTATIN CALCIUM 40 MG TABLET PO SCH (21:45)
[2017-05-19] MEDS: HYDRALAZINE HCL INJ/PF 20 MG/1 ML SDV IV PRN (23:49)
[2017-05-20] MEDS: ACETAMINOPHEN 325 MG TABLET PO PRN (05:29)
[2017-05-20 07:16] LABS: ABSOLUTE LYMPHOCYTES (AUTO) 0.8 10^3/uL (0.5-4.7); ABSOLUTE MONOCYTES (AUTO) 0.4 10^3/uL (0.1-1.4); ABSOLUTE NEUT (AUTO) 5.5 10^3/uL (1.7-8.2); BASOPHILS % (AUTO) 0.2 % (0-2); EOSINOPHILS % (AUTO) 0.1 % (0-6); HEMATOCRIT 43.1 % (36.0-47.0); HEMOGLOBIN 13.7 g/dL (12.0-15.5); LYMPHOCYTES % (AUTO) 12.4 % (13-45); MEAN CORPUSCULAR HEMOGLOBIN 26.5 pg (27.0-33.4); MEAN CORPUSCULAR HGB CONC 31.6 g/dL (32.0-36.0); MEAN CORPUSCULAR VOLUME 84 fl (80-97); MONOCYTES % (AUTO) 5.3 % (3-13); RED BLOOD COUNT 5.15 10^6/uL (3.72-5.28); RED CELL DISTRIBUTION WIDTH 16.1 % (11.5-14.0); WHITE BLOOD COUNT 6.7 10^3/uL (4.0-10.5)
[2017-05-20 07:27] LABS: ANION GAP 12 (5-19); BLOOD UREA NITROGEN 14 mg/dL (7-20); CALCIUM 9.8 mg/dL (8.4-10.2); CARBON DIOXIDE 25 mmol/L (22-30); CHLORIDE 102 mmol/L (98-107); CHOLESTEROL 181.27 mg/dL (0-200); CREATININE RESULT 0.57 mg/dL (0.52-1.25); Direct HDL 57 mg/dL (>40); GLUCOSE 109 mg/dL (75-110); POTASSIUM 3.7 mmol/L (3.6-5.0); SODIUM 138.8 mmol/L (137-145); TRIGLYCERIDES 120 mg/dL (<150)
[2017-05-20 07:37] LABS: DIRECT LDL 110 mg/dL (<100)
[2017-05-20 09:07] LABS: MAGNESIUM 2.1 mg/dL (1.6-2.3)
[2017-05-20] MEDS ORDERED: (PENDING PHARMACY ID) (Atenolol [Tenormin 100 Mg Tablet] 100 MG) PO SCH (10:00)
[2017-05-20] MEDS: ASPIRIN 325 MG TABLET, ENT COATED PO SCH (10:11)
[2017-05-20] MEDS: ATENOLOL 50 MG TABLET PO SCH (10:11)
[2017-05-20] MEDS: LISINOPRIL 10 MG TABLET PO SCH (10:15)
--- NOTE | 2017-05-20 10:47 | Physician Advisory Note ---
Physician Advisor ProgressNote .: Pursuant to the plan for [facility], I have reviewed the medical record for this patient. Physician Advisor Statement: Please consider documentin. "hypertensive emergency, with associated ___ [sx]". - "Hypertensive Urgency" dx requires urgent tx & BP's systolic >180 or diastolic >120. - "Hypertensive Emergency" dx requires those 2 points + symptoms &/or end- organ effects [neuro deficits, acute encephalopathy, sz, HARO, N/V, CP, blurry vision, ...]. - "Hypertensive Crisis" = umbrella term including both of the above 2 dx.s. Status: appropriate to bring pt in as Outpt Obs initially. If pt is not yet felt clinically stable enough for d/c today, please document ongoing clinical issues preventing safe d/c, & consider change to Inpt status. Thanks! CK
--- NOTE | 2017-05-20 11:02 | PDOC PROGRESS REPORT ---
Subjective Progress Note for:: 05/20/17 Subjective:: reason for visit: f/u AMS, TIA, acc HTN, dementia hospital course: per other's notes -"Jessenia Goodrich is an 86-year-old female who to emergency department via ems with report of a past medical history of GERD,essential hypertension, chronic grade II/IV diastolic heart failure and vascular dementia with report of patient having an altered state when she was on the toilet and went unresponsive to verbal stimuli for approximately 5-10 minutes. Her [id number] states her eyes glazed and she was nonverbal. She states she began shaking shortly thereafter and then became alert. She denies any injury or falls to the floor during this time. She was noted to be extremely hypertensive upon EMS arrival to her home with a blood pressure of 184/110. She has had no recent illnesses according to family were not present at room at this time. Patient on questioning describes a mild headache, not the worst of her life. There is no head injury. She denies any neck pain or chest pain or abdominal pain. There was more of a generalized weakness, and patient denies any one- sided weakness or numbness. She is presently disoriented 3, she does know her name and thinks the year is 1971. " I inherited her care Friday and she is more with it now, able to tell me she is in [facility] and knows something happened but has "holes in my memory for events of yesterday". She rambles a bit, tangential but eventually finds her way back. Her evaluation so far is unrevealing other than poorly controlled HTN; her labs look ok, ct head shows age appropriate involutional changes but nothing acute. carotid dopplers are still pending. she denies chest pain, palpitations, HARO, vision orhearing changes, n/t, n/v/d, fevers/ chills. ROS: all systems reviewed, see above, remaining systems negative Physical Exam Vital Signs: Temp Pulse Resp BP Pulse Ox 98.2 F 86 16 163/91 H 93 05/20/17 07:29 05/20/17 07:29 05/20/17 07:29 05/20/17 07:29 05/20/17 07:29 Intake & Output 05/19/17 05/20/17 05/21/17 06:59 06:59 06:59 Intake Total 6 Output Total 700 Balance -694 Weight 67.4 kg General appearance: PRESENT: no acute distress, well-developed, well-nourished Head exam: PRESENT: atraumatic, normocephalic Eye exam: PRESENT: EOMI. ABSENT: conjunctival injection, scleral icterus Teeth exam: PRESENT: edentulous - parial Neck exam: PRESENT: full ROM. ABSENT: carotid bruit, JVD, lymphadenopathy, tenderness Respiratory exam: PRESENT: clear to auscultation baldemar. ABSENT: accessory muscle use Cardiovascular exam: PRESENT: RRR, systolic murmur - soft at the apex Pulses: PRESENT: normal carotid pulses, normal radial pulses GI/Abdominal exam: PRESENT: normal bowel sounds, soft. ABSENT: tenderness Extremities exam: PRESENT: pedal edema - trace. ABSENT: calf tenderness Musculoskeletal exam: PRESENT: full ROM. ABSENT: tenderness Neurological exam: PRESENT: alert, awake, oriented to person, oriented to place , reflexes normal. ABSENT: oriented to time, oriented to situation, aphasic Psychiatric exam: PRESENT: appropriate affect, normal mood Skin exam: PRESENT: dry, warm Results Laboratory Results: 05/20/17 06:57 05/20/17 06:57 05/20/17 05/20/17 05/20/17 06:57 06:57 06:57 WBC 6.7 RBC 5.15 Hgb 13.7 Hct 43.1 MCV 84 MCH 26.5 L MCHC 31.6 L RDW 16.1 H Plt Count 128 L Seg Neutrophils % 82.0 H Lymphocytes % 12.4 L Monocytes % 5.3 Eosinophils % 0.1 Basophils % 0.2 Absolute Neutrophils 5.5 Absolute Lymphocytes 0.8 Absolute Monocytes 0.4 Absolute Eosinophils 0.0 Absolute Basophils 0.0 Sodium 138.8 Potassium 3.7 Chloride 102 Carbon Dioxide 25 Anion Gap 12 BUN 14 Creatinine 0.57 Est GFR ( Amer) > 60 Est GFR (Non-Af Amer) > 60 Glucose 109 Calcium 9.8 Magnesium 2.1 Triglycerides 120 Cholesterol 181.27 LDL Cholesterol Direct 110 H VLDL Cholesterol 24.0 HDL Cholesterol 57 Vitamin B12 433.0 05/19/17 05/20/17 05/20/17 19:41 01:10 06:57 Troponin I < 0.012 < 0.012 < 0.012 Impressions: Chest X-Ray 05/19/17 12:12 IMPRESSION: NO ACUTE RADIOGRAPHIC FINDING IN THE CHEST. Head CT 05/19/17 12:12 IMPRESSION: MILD CHRONIC CHANGES OF ATROPHY AND MICROVASCULAR ISCHEMIA. NO ACUTE PROCESS. Status: Image reviewed by me - agree with rads Assessment & Plan - Diagnosis (1) Accelerated essential hypertension Is this a current diagnosis for this admission?: YesPlan: unclear but possibly contributing to her presentation with confusion; peaked at 225/91 and overall trend is still too high. will add ACEi and monitor for response. (2) Altered awareness, transient Is this a current diagnosis for this admission?: YesPlan: unclear what her baseline is but I suspect she is near baseline at least. ck Mg and B12 levels. f/u carotids. (3) Dementia Qualifiers: Dementia type: unspecified type Dementia behavioral disturbance: without behavioral disturbance Qualified Code(s): F03.90 - Unspecified dementia without behavioral disturbance Is this a current diagnosis for this admission?: Yes (4) GERD (gastroesophageal reflux disease) Qualifiers: Esophagitis presence: without esophagitis Qualified Code(s): K21.9 - Gastro-esophageal reflux disease without esophagitis Is this a current diagnosis for this admission?: Yes (5) Hyperlipidemia Qualifiers: Hyperlipidemia type: other hyperlipidemia Qualified Code(s): E78.4 - Other hyperlipidemia Is this a current diagnosis for this admission?: Yes (6) Chronic diastolic CHF (congestive heart failure) Is this a current diagnosis for this admission?: Yes (7) Hypothyroidism Qualifiers: Hypothyroidism type: acquired Qualified Code(s): E03.9 - Hypothyroidism, unspecified Is this a current diagnosis for this admission?: Yes - Time Time Spent with patient: 15-24 minutes Anticipated discharge: Home - cared for at home by family Within: within 24 hours
--- NOTE | 2017-05-20 11:34 | RADIOLOGY REPORT (SQ) ---
EXAM DESCRIPTION: CAROTID DOPPLER COMPLETED DATE/TIME: 05/20/2017 11:20 am REASON FOR STUDY: TIA symptoms COMPARISON: 11/22/2014. TECHNIQUE: Grayscale ultrasound, Doppler velocity and spectra, and color Doppler images acquired of the extra-cranial carotid and vertebral arteries. Images stored on PACS. LIMITATIONS: None. FINDINGS: RIGHT CAROTID CCA Velocities: Within normal limits. ICA Velocities Peak systolic 1.09 m/s. End diastolic 0.14 m/s. Proximal ICA/CCA peak systolic ratio 1.7. Soft plaque in the proximal internal carotid artery. LEFT CAROTID CCA Velocities: Within normal limits. ICA Velocities Peak systolic 1.2 m/s. End diastolic 0.27 m/s. Proximal ICA/CCA peak systolic ratio 1.7. Heterogenous plaque in the proximal internal carotid artery. VERTEBRAL ARTERIES: Antegrade flow. Normal waveforms. SUBCLAVIAN ARTERIES: No finding. OTHER: No other significant finding. IMPRESSION: BILATERAL PLAQUE. NO HEMODYNAMICALLY SIGNIFICANT STENOSIS. COMMENT: Quality ID #[id number]: Velocity criteria are extrapolated from the diameter data as defined by t he Society of Radiologists in Ultrasound Consensus Conference. Radiology 2003: 229; 340-346. TECHNICAL DOCUMENTATION: JOB ID: [id number] [employer]- All Rights Reserved
[2017-05-20] MEDS: ENOXAPARIN SODIUM INJ 30 MG/0.3 ML DISP.SYRIN SUBCUT SCH (11:58)
[2017-05-20] MEDS: ATORVASTATIN CALCIUM 40 MG TABLET PO SCH (21:04)
[2017-05-21] MEDS: ACETAMINOPHEN 325 MG TABLET PO PRN (00:43)
[2017-05-21] MEDS: HYDRALAZINE HCL INJ/PF 20 MG/1 ML SDV IV PRN (00:43)
[2017-05-21] MEDS: ASPIRIN 325 MG TABLET, ENT COATED PO SCH (09:23)
[2017-05-21] MEDS: ATENOLOL 50 MG TABLET PO SCH (09:23)
[2017-05-21] MEDS: PAROXETINE HCL 20 MG TABLET PO SCH (09:24)
[2017-05-21] MEDS: LISINOPRIL 10 MG TABLET PO SCH (09:24)
[2017-05-21] MEDS: ENOXAPARIN SODIUM INJ 30 MG/0.3 ML DISP.SYRIN SUBCUT SCH (10:40)
--- NOTE | 2017-05-21 10:50 | PDOC PROGRESS REPORT ---
Subjective Progress Note for:: 05/21/17 Subjective:: reason for visit: f/u AMS, TIA, acc HTN, dementia hospital course: per other's notes -"Jessenia Goodrich is an 86-year-old female who to emergency department via ems with report of a past medical history of GERD,essential hypertension, chronic grade II/IV diastolic heart failure and vascular dementia with report of patient having an altered state when she was on the toilet and went unresponsive to verbal stimuli for approximately 5-10 minutes. Her [id number] states her eyes glazed and she was nonverbal. She states she began shaking shortly thereafter and then became alert. She denies any injury or falls to the floor during this time. She was noted to be extremely hypertensive upon EMS arrival to her home with a blood pressure of 184/110. She has had no recent illnesses according to family were not present at room at this time. Patient on questioning describes a mild headache, not the worst of her life. There is no head injury. She denies any neck pain or chest pain or abdominal pain. There was more of a generalized weakness, and patient denies any one- sided weakness or numbness. She is presently disoriented 3, she does know her name and thinks the year is 1971. " I inherited her care Friday and she was able to tell me she is in [facility] and knows something happened but has "holes in my memory for events of yesterday". She rambled a bit, tangential but eventually found her way back. Her evaluation so far is unrevealing other than poorly controlled HTN; her labs look ok, ct head shows age appropriate involutional changes but nothing acute. carotid dopplers show nonocclusive plaque. Friday she is not as clear, remembers less and her daughter is present but she doesn't know her by name or sight. she struggles to recall events in her past including wedding date or anniversary with her late . Daughter reports she has mild dementia will short term memory loss but never like this, normally knows the year, location and other details and has never failed to recognize family. she denies chest pain, palpitations, HARO, vision orhearing changes, n/t, n/v/d, fevers/chills. ROS: all systems reviewed, see above, remaining systems negative Physical Exam Vital Signs: Temp Pulse Resp BP Pulse Ox 98.2 F 73 16 150/76 H 96 05/21/17 07:21 05/21/17 07:21 05/21/17 07:21 05/21/17 07:21 05/21/17 07:21 Intake & Output 05/20/17 05/21/17 05/22/17 06:59 06:59 06:59 Intake Total 6 1239 Output Total 700 850 Balance -694 389 Weight 67.4 kg 69 kg General appearance: PRESENT: no acute distress, well-developed, well-nourished, family at bedside Head exam: PRESENT: atraumatic, normocephalic Eye exam: PRESENT: EOMI. ABSENT: conjunctival injection, scleral icterus Teeth exam: PRESENT: edentulous - partial Neck exam: PRESENT: full ROM. ABSENT: carotid bruit, JVD, lymphadenopathy, tenderness Respiratory exam: PRESENT: clear to auscultation baldemar. ABSENT: accessory muscle use Cardiovascular exam: PRESENT: RRR, systolic murmur - soft at the apex Pulses: PRESENT: normal carotid pulses, normal radial pulses GI/Abdominal exam: PRESENT: normal bowel sounds, soft. ABSENT: tenderness Extremities exam: PRESENT: pedal edema - trace. ABSENT: calf tenderness Musculoskeletal exam: PRESENT: full ROM. ABSENT: tenderness Neurological exam: PRESENT: alert, awake, reflexes normal, oriented to person, but no longer oriented to place, not oriented to time or to situation. no dysphagia, facial asymmetry, ptosis. tongue protrudes midline. moves all 4 exts and strength at least 4/5 in all major muscle groups. able to complete single step commands with ease, struggles to process 2 step commands but nonfocal neurologic exam. she doesn't remember her anniversary or how she met her late but can remember her bday; doesn't recognize her daughter's face or by name. Psychiatric exam: PRESENT: appropriate affect, normal mood Skin exam: PRESENT: dry, warm Results Laboratory Results: 05/20/17 06:57 05/20/17 06:57 05/21/17 08:47 Ammonia < 8.7 L 05/19/17 05/20/17 05/20/17 19:41 01:10 06:57 Troponin I < 0.012 < 0.012 < 0.012 Impressions: Carotid Doppler Study 05/20/17 00:00 IMPRESSION: BILATERAL PLAQUE. NO HEMODYNAMICALLY SIGNIFICANT STENOSIS. Assessment & Plan - Diagnosis (1) Altered awareness, transient Is this a current diagnosis for this admission?: YesPlan: the daughter now clarifies this is not her mother's baseline, far from it but that she was in her usual state of health up until the night this happened. she describes posturing of the hands and legs during a period of unresponsiveness followed by a period of confusion that persists to today. Her BPs have been markedly elevated particularly at night raising the possibility of HTN encephalitis or stroke in the setting of vascular dementia. No clear metabolic cause found yet, last TSH 12/2016 was normal, B12 is 433, last echo 09/2016 that showed nl EF, mild LVH, grade 2 diastolic dysfunction and mild MR, TR and AR with at least mild pulm HTN. CT head was negative for acute changes and carotids show no occlusion. lipids, TpI's, LFTs, chem7 and CBC all unremarkable. will add MRI brain to eval for CVA, ammonia to round out the metabolic eval. start PT. discussed with daughter that this may be TIA or HTN crisis triggering sudden worsening of her underlying dementia and that she may not recover from this state. As such they need to begin thinking about how they want to handle her care going forward, particularly discharge disposition decisions. (2) Accelerated essential hypertension Is this a current diagnosis for this admission?: YesPlan: unclear but possibly contributing to her presentation with confusion; peaked at 225/91 and overall trend remains too high. chg ACEi to q and monitor for response as her BPs even worse during the night. (3) Dementia Qualifiers: Dementia type: unspecified type Dementia behavioral disturbance: without behavioral disturbance Qualified Code(s): F03.90 - Unspecified dementia without behavioral disturbance Is this a current diagnosis for this admission?: YesPlan: likely vascular type, only inciting event for this sudden decline identified so far is HTN poorly controlled. workup as noted above. (4) GERD (gastroesophageal reflux disease) Qualifiers: Esophagitis presence: without esophagitis Qualified Code(s): K21.9 - Gastro-esophageal reflux disease without esophagitis Is this a current diagnosis for this admission?: Yes (5) Hyperlipidemia Qualifiers: Hyperlipidemia type: other hyperlipidemia Qualified Code(s): E78.4 - Other hyperlipidemia Is this a current diagnosis for this admission?: Yes (6) Chronic diastolic CHF (congestive heart failure) Is this a current diagnosis for this admission?: Yes (7) Hypothyroidism Qualifiers: Hypothyroidism type: acquired Qualified Code(s): E03.9 - Hypothyroidism, unspecified Is this a current diagnosis for this admission?: YesPlan: well controlled on current regimen as of 12/2016, will repeat in am and adjust dose accordingly - Time Time Spent with patient: 35 or more minutes Medications reviewed and adjusted accordingly: Yes - Plan Summary Plan Summary: i suspect she will need placement as I doubt her family can handle her at home in this condition. will start aricept once MRI confirms no acute pathology and consult nurse case manager regarding options.
--- NOTE | 2017-05-21 13:00 | RADIOLOGY REPORT (SQ) ---
EXAM DESCRIPTION: MRI HEAD WITHOUT COMPLETED DATE/TIME: 05/21/2017 12:46 pm REASON FOR STUDY: acute neurologic syndrome E03.9 HYPOTHYROIDISM, UNSPECIFIED COMPARISON: MRI brain 11/21/2014 CT brain 05/19/2017 TECHNIQUE: Multiplanar imaging includes non-contrasted T1, T2, FLAIR, and diffusion with ADC map seq uences. Images stored on PACS. LIMITATIONS: None. FINDINGS: ANATOMY: No developmental anomalies. Normal vascular flow voids. Pituitary fossa normal. CSF SPACES: Normal in size and contour. No hemorrhage. CEREBRUM: No MR evidence of acute ischemic change. No acute hemorrhage mass effect or midline shift. There is extensive small vessel disease in the bifrontal, biparietal, and bilateral temporal white ma tter, with multiple lacunar infarcts in the bilateral basal ganglia and deep periventricular white ma tter. Small vessel disease in the right and left thalamus. All of these findings are similar compar ed to prior MRI brain 11/21/2014. POSTERIOR FOSSA: Moderate increased FLAIR/ T2 signal in the mid gurinder from small vessel disease, stabl e compared to 2014. Internal auditory canals, inner ear structures grossly normal. DIFFUSION IMAGING: Negative for acute or sub-acute infarction. ORBITS: No masses. Globes post bilateral cataract surgery. PARANASAL SINUSES: No fluid levels. Mucosa normal. OTHER: No other significant finding. IMPRESSION: Extensive white matter disease, similar compared to MRI brain 11/21/2014. No acute findings TECHNICAL DOCUMENTATION: JOB ID: [id number]- All Rights Reserved
[2017-05-21] MEDS: GABAPENTIN 100 MG CAPSULE PO SCH ×2 (13:26→21:52)
[2017-05-21] MEDS: ATORVASTATIN CALCIUM 40 MG TABLET PO SCH (21:52)
[2017-05-21] MEDS ORDERED: LISINOPRIL 10 MG TABLET PO SCH (22:00)
[2017-05-22] MEDS: GABAPENTIN 100 MG CAPSULE PO SCH ×2 (05:14→14:16)
[2017-05-22 06:57] LABS: HEMATOCRIT 40.9 % (36.0-47.0); HGB HCT DIFFERENCE -1.9; MEAN CORPUSCULAR HEMOGLOBIN 26.5 pg (27.0-33.4); MEAN CORPUSCULAR HGB CONC 31.8 g/dL (32.0-36.0); MEAN CORPUSCULAR VOLUME 83 fl (80-97); RED BLOOD COUNT 4.92 10^6/uL (3.72-5.28); RED CELL DISTRIBUTION WIDTH 15.9 % (11.5-14.0); WHITE BLOOD COUNT 5.8 10^3/uL (4.0-10.5)
[2017-05-22] MEDS: ATENOLOL 50 MG TABLET PO SCH (09:42)
[2017-05-22] MEDS: ASPIRIN 325 MG TABLET, ENT COATED PO SCH (09:42)
[2017-05-22] MEDS: ENOXAPARIN SODIUM INJ 30 MG/0.3 ML DISP.SYRIN SUBCUT SCH (09:44)
[2017-05-22] MEDS: PAROXETINE HCL 20 MG TABLET PO SCH (09:44)
--- NOTE | 2017-05-22 10:55 | PDOC DISCHARGE SUMMARY ---
General - Admit/Disc Date/PCP Admission Date/Primary Care Provider: 05/21/17 17:53 MAI RODRIGUEZ NP Discharge Date: 05/22/17 - Discharge Diagnosis (1) Altered awareness, transient Is this a current diagnosis for this admission?: YesSummary: probable TIA, no other explanation found on exhaustive exam and evaluation. Family is concerned for seizures due to the shaking and jerking they witnessed and state she's "been doing that off/on with these spells for some time now" but she will call out to them and describe doing so. difficult to say with certainty but it is uncharacteristic for people to remember events during a seizure. nevertheless I encouraged them to f/u with her PCP for outpt referral to neurologist for more formal evaluation. she had no such activity during her stay here. (2) Accelerated essential hypertension Is this a current diagnosis for this admission?: YesSummary: markedly improved from presentation and I suspect was the trigger for the episode. continue ACEi and betablocker, home health fdc to monitor BPs and report to her PCP in 1-2 wks for further titration of her regimen as needed. continue ASA as primary prophylaxis against CVA. (3) Dementia Is this a current diagnosis for this admission?: YesSummary: vascular type in all likelihood given the findings on MRI. continue aricept and defer to her PCP regarding further treatment. (4) GERD (gastroesophageal reflux disease) Is this a current diagnosis for this admission?: Yes (5) Hyperlipidemia Is this a current diagnosis for this admission?: YesSummary: increase her dose of statin and change to lipitor which is on formulary here making it easier to consistently manage her meds with each admission and discharge. (6) Chronic diastolic CHF (congestive heart failure) Is this a current diagnosis for this admission?: Yes (7) Hypothyroidism Is this a current diagnosis for this admission?: Yes - Additional Information Resuscitation Status: Full Code Discharge Diet: Cardiac Discharge Activity: Activity As Tolerated Home Medications: Atenolol [Tenormin 100 mg Tablet] 100 mg PO DAILY 05/19/17 Donepezil HCl [Aricept] 5 mg PO QPM 05/19/17 Gabapentin [Neurontin 100 mg Capsule] 200 mg PO TID 05/19/17 Hydrocodone/Acetaminophen [[place] 5-325 mg Tablet] 1 tab PO QIDP PRN 05/19/17 Omeprazole 20 mg PO DAILY 05/19/17 Paroxetine HCl [Paxil] 10 mg PO DAILY 05/19/17 Aspirin [Ecotrin 325 mg EC Tablet] 325 mg PO DAILY tabec 05/22/17 Atenolol [Tenormin 50 mg Tablet] 100 mg PO DAILY tablet 05/22/17 Atorvastatin Calcium [Lipitor 40 mg Tablet] 40 mg PO QHS #30 tablet 05/22/17 Lisinopril [Prinivil 10 mg Tablet] 10 mg PO QHS #30 tablet 05/22/17 History of Present Illness Patient complains of: Altered mental status per EMS run sheet and family History of Present Illness: ROXANNE DE LA GARZA is a 86 year old female who to emergency department via ems with report of a past medical history of GERD,essential hypertension, chronic grade II/IV diastolic heart failure and vascular dementia with report of patient having an altered state when she was on the toilet and went unresponsive to verbal stimuli for approximately 5-10 minutes. Her daughter-in- law states her eyes glazed and she was nonverbal. Hospital Course Hospital Course: She states she began shaking shortly thereafter and then became alert. She denies any injury or falls to the floor during this time. She was noted to be extremely hypertensive upon EMS arrival to her home with a blood pressure of 184 /110. She has had no recent illnesses according to family were not present at room at this time. Patient on questioning describes a mild headache, not the worst of her life. There is no head injury. She denies any neck pain or chest pain or abdominal pain. There was more of a generalized weakness, and patient denies any one- sided weakness or numbness. She is presently disoriented 3, she does know her name and thinks the year is 1971. " I inherited her care Friday and she was able to tell me she is in [facility] and knows something happened but has "holes in my memory for events of yesterday". She rambled a bit, tangential but eventually found her way back. Her evaluation so far is unrevealing other than poorly controlled HTN; her labs look ok, ct head shows age appropriate involutional changes but nothing acute. carotid dopplers show nonocclusive plaque. Friday she is not as clear, remembers less and her daughter is present but she doesn't know her by name or sight. she struggles to recall events in her past including wedding date or anniversary with her late . Daughter reports she has mild dementia will short term memory loss but never like this, normally knows the year, location and other details and has never failed to recognize family. she underwent an extensive lab and imaging evaluation, continuous monitoring on telemetry and no acute pathologic process ever identified beyond markedly elevated BPs as possible trigger for TIA in the setting of likely progressive vascular dementia. she has returned to nearly her baseline, BPs improved with addition of ACEi and she is stable for d/c home with home health at this time. her son, present at bedside expresses no concerns about taking her home at this time. he is willing to place her in assisted living or SNF if they are unable to manage her at home. she should f/u with her PCP in 1-2 wks for BP checks and the family seems interested in pursuing neurology consult for her dementia and second opinion regarding seizures. Physical Exam Vital Signs: Temp Pulse Resp BP Pulse Ox 98.3 F 62 16 140/80 H 96 05/22/17 08:03 05/22/17 08:03 05/22/17 08:03 05/22/17 08:03 05/22/17 08:03 Intake & Output 05/21/17 05/22/17 05/23/17 06:59 06:59 06:59 Intake Total 1115 Output Total 700 Balance 415 Weight 67.7 kg General appearance: PRESENT: no acute distress, well-developed, well-nourished Head exam: PRESENT: atraumatic, normocephalic Eye exam: PRESENT: EOMI. ABSENT: conjunctival injection, scleral icterus Neck exam: PRESENT: full ROM. ABSENT: tenderness Respiratory exam: PRESENT: clear to auscultation baldemar. ABSENT: accessory muscle use Cardiovascular exam: PRESENT: RRR. ABSENT: systolic murmur Musculoskeletal exam: PRESENT: ambulatory - with assistance or cane, full ROM Neurological exam: PRESENT: alert, awake, oriented to person, oriented to place , oriented to time - knows its Jim[place] and season is summer, not sure of the year but is "2000 something" Psychiatric exam: PRESENT: appropriate affect, normal mood. ABSENT: anxious Focused psych exam: ABSENT: delusional, flight of ideas - no longer tangential, paranoid Results Laboratory Results: 05/22/17 05:16 05/22/17 05/22/17 05:16 05:16 WBC 5.8 RBC 4.92 Hgb 13.0 Hct 40.9 MCV 83 MCH 26.5 L MCHC 31.8 L RDW 15.9 H Plt Count 123 L TSH 1.11 Impressions: Chest X-Ray 05/19/17 12:12 IMPRESSION: NO ACUTE RADIOGRAPHIC FINDING IN THE CHEST. Head CT 05/19/17 12:12 IMPRESSION: MILD CHRONIC CHANGES OF ATROPHY AND MICROVASCULAR ISCHEMIA. NO ACUTE PROCESS. Carotid Doppler Study 05/20/17 00:00 IMPRESSION: BILATERAL PLAQUE. NO HEMODYNAMICALLY SIGNIFICANT STENOSIS. Head MRI 05/21/17 08:22 IMPRESSION: Extensive white matter disease, similar compared to MRI brain 2014. No acute findings Qualifiers PATEINT BEING DISCHARGED WITH ANY OF THE FOLLOWING DIAGNOSIS?: No VTE patient discharged on overlapping Therapy?: No Reason(s) for not prescribing Overlap Therapy:: Not indicated Plan Discharge Plan: d/c home with home health and change in her BP meds; f/u with PCP in 1-2 wks Time Spent: Greater than 30 Minutes
[2017-05-22 13:57] VITALS: BP 150/71
== END 2017-05-22 15:58 | disposition home health service (06) | DRG 305 ==
LOC: ER 12:07 → EH 16:05 → UNDOADMOB 16:46 → EH 16:46 → 3W 21:55 → OBSVTOIN 05-21 17:53 → 3W 05-21 19:45
PROVIDERS: ADMIT Family Medicine; ATTEND Family Medicine
DX: I16.1 Hypertensive emergency (principal); I50.32 Chronic diastolic (congestive) heart failure; I11.0 Hypertensive heart disease with heart failure; E03.9 Hypothyroidism, unspecified; E78.5 Hyperlipidemia, unspecified; K21.9 Gastro-esophageal reflux disease without esophagitis; F01.50 Vascular dementia, unspecified severity, without behavioral disturbance, psychotic disturbance, mood disturbance, and anxiety
CPT/HCPCS: 36415; 70450; 70551; 71010; 80048; 80053; 80061; 81001; 82140; 82550; 82553; 82607; 83690; 83735; 84443; 84484; 85025; 85027; 85610; 85730; 93005; 93010; 93880; 99291; G0378; G8978-GP; G8979-GP; G9159-GN; G9160-GN; G9161-GN; J0360; J1650; J3490

== ENCOUNTER 2017-07-31 13:15 | Emergency (ER) | payer MEDICARE, MEDICAID ==
[2017-07-31] MEDS ORDERED: ASPIRIN 81 MG TABLET, CHEWABLE PO ONE (13:50)
[2017-07-31 14:21] LABS: HEMOGLOBIN 13.3 g/dL (12.0-15.5); HGB HCT DIFFERENCE 0.9; MEAN CORPUSCULAR VOLUME 85 fl (80-97); RED BLOOD COUNT 4.57 10^6/uL (3.72-5.28); RED CELL DISTRIBUTION WIDTH 18.3 % (11.5-14.0); WHITE BLOOD COUNT 6.4 10^3/uL (4.0-10.5)
[2017-07-31 14:25] LABS: ALANINE AMINOTRANSFERASE 142 U/L (9-52); ALBUMIN 3.2 g/dL (3.5-5.0); ALKALINE PHOSPHATASE 1107 U/L (38-126); ANION GAP 11 (5-19); ASPARTATE AMINO TRANSFERASE 165 U/L (14-36); BILIRUBIN,DIRECT 2.8 mg/dL (0.0-0.4); BILIRUBIN,TOTAL 3.5 mg/dL (0.2-1.3); BLOOD UREA NITROGEN 22 mg/dL (7-20); CALCIUM 9.2 mg/dL (8.4-10.2); CARBON DIOXIDE 28 mmol/L (22-30); CHLORIDE 104 mmol/L (98-107); CREATINE KINASE 24 U/L (30-135); CREATININE RESULT 0.68 mg/dL (0.52-1.25); GLUCOSE 53 mg/dL (75-110); POTASSIUM 3.5 mmol/L (3.6-5.0); SODIUM 143.2 mmol/L (137-145)
[2017-07-31 14:37] LABS: CREATINE KINASE MB 0.92 ng/mL (<4.55)
[2017-07-31 14:38] LABS: TROPONIN I < 0.012 ng/mL
--- NOTE | 2017-07-31 14:46 | RADIOLOGY REPORT (SQ) ---
EXAM DESCRIPTION: CHEST SINGLE VIEW COMPLETED DATE/TIME: 07/31/2017 2:06 pm REASON FOR STUDY: CP COMPARISON: 05/19/2017 EXAM PARAMETERS: NUMBER OF VIEWS: One view. TECHNIQUE: Single frontal radiographic view of the chest acquired. RADIATION DOSE: NA LIMITATIONS: None. FINDINGS: LUNGS AND PLEURA: No opacities, masses or pneumothorax. No pleural effusion. MEDIASTINUM AND HILAR STRUCTURES: No masses. Contour normal. HEART AND VASCULAR STRUCTURES: Heart normal in size. Normal vasculature. BONES: No acute findings. HARDWARE: None in the chest. OTHER: No other significant finding. IMPRESSION: NO ACUTE RADIOGRAPHIC FINDING IN THE CHEST. TECHNICAL DOCUMENTATION: JOB ID: [id number]
[2017-07-31] MEDS ORDERED: NORMAL SALINE 1000 ML 500 ML IV PRN (14:47)
--- NOTE | 2017-07-31 15:04 | ER Document Report ---
ED General - General Chief Complaint: Chest Pain Stated Complaint: CHEST PAINT Time Seen by Provider: 07/31/17 14:16 Mode of Arrival: Stretcher Information source: Patient, Relative TRAVEL OUTSIDE OF THE [place] IN LAST 30 DAYS: No - HPI Patient complains to provider of: Chest pain, nausea and vomiting, upper abdominal pain Onset: Yesterday Onset/Duration: Gradual, Persistent, Worse Quality of pain: Achy, Sharp Severity: Moderate Pain Level: 3 Associated symptoms: Nausea, Vomiting Exacerbated by: Deep breathing Relieved by: Denies Notes: Patient is an 86-year-old female who presents to the emergency room with son complaining of chest pain, although she points to the upper abdomen when she describes where her pain is, she reports associated nausea and vomiting, states it hurts when she takes a deep breath or make certain movements, symptoms have been going on since yesterday although she states that they have been going on much longer, son confirms that the first time he heard her complain about it was yesterday, she does have a history of cholecystostomy tube in the past back in 2016 - Related Data Allergies/Adverse Reactions: No Known Allergies Allergy (Unverified 11/21/14 18:30) Past Medical History - General Information source: Patient, Relative - Social History Smoking Status: Never Smoker Chew tobacco use (# tins/day): No Frequency of alcohol use: None Drug Abuse: None Family History: Hypertension - Past Medical History Cardiac Medical History: Reports: Hx 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 - Immunizations Hx Diphtheria, Pertussis, Tetanus Vaccination: No Hx Pneumococcal Vaccination: 11/23/14 Review of Systems - Review of Systems Constitutional: No symptoms reported EENT: No symptoms reported Cardiovascular: Chest pain Respiratory: No symptoms reported Gastrointestinal: See HPI Genitourinary: No symptoms reported Female Genitourinary: No symptoms reported Musculoskeletal: No symptoms reported Skin: No symptoms reported Hematologic/Lymphatic: No symptoms reported Neurological/Psychological: No symptoms reported -: Yes All other systems reviewed and negative Physical Exam - Vital signs Vitals: Resp 16 07/31/17 13:40 Interpretation: Normal - General General appearance: Alert - HEENT Head: Normocephalic, Atraumatic Eyes: Normal Conjunctiva: Normal Extraocular movements intact: Yes Eyelashes: Normal Pupils: PERRL Mucous membranes: Normal Pharynx: Normal - Respiratory Respiratory status: No respiratory distress Chest status: Nontender Breath sounds: Normal Chest palpation: Normal - Cardiovascular Rhythm: Regular Heart sounds: Normal auscultation Murmur: No - Abdominal Inspection: Normal Distension: No distension Bowel sounds: Normal Tenderness: Tender - Tender to palpate across upper abdomen, increased in epigastric region, right upper quadrant Organomegaly: No organomegaly - Back Back: Normal, Nontender - Extremities General upper extremity: Normal inspection, Nontender, Normal ROM, Normal temperature General lower extremity: Normal inspection, Nontender, Normal ROM, Normal temperature. No: Chaim's sign - Neurological Neuro grossly intact: Yes Rod Coma Scale Eye Opening: Spontaneous Rod Coma Scale Verbal: Confused [place] Coma Scale Motor: Obeys Commands Rod Coma Scale Total: 14 Speech: Normal Motor strength normal: LUE, RUE, LLE, RLE Sensory: Normal - Psychological Associated symptoms: Normal affect, Normal mood - Skin Skin Temperature: Warm Skin Moisture: Dry Skin Color: Pale Course - Re-evaluation Re-evalutation: 07/31/17 18:22 Call was placed to [facility], patient was discussed with the transfer center for transfer and she will need gastroenterology evaluation 07/31/17 18:40 Patient was discussed with hospitalist/resident Dr. Murphy, who agrees to accept patient on behalf of Dr. Gamboa, however the transfer center states she will be placed on a waiting list as they are at Surgeon capacity, however they have gotten a few beds this evening 07/31/17 21:51 Patient resting comfortably on stretcher, she is requesting to take 1 of her own pain pills, however I advised her I would order IV pain meds and she should continue to remain without oral intake until otherwise advised by a physician that she should resume eating, IV morphine was ordered, [facility] [place] in the department to transport patient to tertiary [facility], patient remained stable for transport - Vital Signs Vital signs: Temp Pulse Resp BP Pulse Ox 98.9 F 81 20 125/88 H 100 07/31/17 20:34 07/31/17 20:07 07/31/17 20:34 07/31/17 20:07 07/31/17 20:34 - Laboratory Result Diagrams: 07/31/17 13:30 07/31/17 13:30 Laboratory results interpreted by me: 07/31/17 07/31/17 07/31/17 13:30 13:30 13:30 RDW 18.3 H Seg Neuts % (Manual) 79 H Band Neutrophils % 12 H Lymphocytes % (Manual) 2 L Abs Lymphs (Manual) 0.2 L Potassium 3.5 L BUN 22 H Glucose 53 L Total Bilirubin 3.5 H Direct Bilirubin 2.8 H AST 165 H ALT 142 H Alkaline Phosphatase 1107 H Creatine Kinase 24 L Total Protein 6.0 L Albumin 3.2 L Lipase 80692.0 H Urine Protein Urine Bilirubin Urine Urobilinogen Ur Leukocyte Esterase Urine Ascorbic Acid Acetaminophen 07/31/17 07/31/17 13:30 16:50 RDW Seg Neuts % (Manual) Band Neutrophils % Lymphocytes % (Manual) Abs Lymphs (Manual) Potassium BUN Glucose Total Bilirubin Direct Bilirubin AST ALT Alkaline Phosphatase Creatine Kinase Total Protein Albumin Lipase Urine Protein 100 H Urine Bilirubin MODERATE H Urine Urobilinogen 4.0 H Ur Leukocyte Esterase MODERATE H Urine Ascorbic Acid 40 H Acetaminophen < 10 L - Diagnostic Test Radiology reviewed: Image reviewed, Reports reviewed - EKG Interpretation by Me EKG shows normal: Sinus rhythm Rate: Normal Rhythm: NSR Heart block present: 1st Degree When compared to previous EKG there are: No significant change Discharge - Discharge Clinical Impression: Choledocholithiasis Condition: Fair Disposition: [facility] Referrals: LUIS FELIPE HOPE MD [Primary Care Provider] - Follow up as needed
[2017-07-31 15:11] LABS: BASOPHILS % (MANUAL) 0 % (0-2); EOSINOPHILS % (MANUAL) 1 % (0-6); LYMPHOCYTES % (MANUAL) 2 % (13-45); TOTAL CELLS COUNTED 100
[2017-07-31 15:13] LABS: ANISOCYTOSIS 1+; POIKILOCYTOSIS SLIGHT; POLYCHROMASIA SLIGHT
[2017-07-31 15:14] LABS: OVALOCYTES SLIGHT; PLATELET CLUMPS PRESENT; TARGET CELLS SLIGHT
[2017-07-31 15:15] LABS: BAND NEUTROPHILS % (MANUAL) 12 % (3-5)
[2017-07-31 17:12] LABS: APPEARANCE,URINE CLOUDY; BILIRUBIN,URINE MODERATE (NEGATIVE); GLUCOSE, URINE NEGATIVE (NEGATIVE); KETONES,URINE NEGATIVE (NEGATIVE); LEUKOCYTE ESTERASE,URINE MODERATE (NEGATIVE); NITRITE,URINE NEGATIVE (NEGATIVE); PROTEIN,URINE 100 mg/dL (NEGATIVE); URINE SPECIFIC GRAVITY 1.027
[2017-07-31] MEDS ORDERED: NORMAL SALINE 1000 ML 1,000 ML IV PRN (17:46)
--- NOTE | 2017-07-31 18:01 | RADIOLOGY REPORT (SQ) ---
EXAM DESCRIPTION: U/S ABDOMEN LIMITED W/O DOP COMPLETED DATE/TIME: 07/31/2017 5:43 pm REASON FOR STUDY: pain COMPARISON: None. TECHNIQUE: Dynamic and static grayscale images acquired of the abdomen and recorded on PACS. Additio nal selected color Doppler and spectral images recorded. LIMITATIONS: None. FINDINGS: PANCREAS: No masses. Visualized pancreatic duct normal caliber. LIVER: No masses. Echotexture normal. LIVER VASCULATURE: Normal directional flow of the main portal vein and hepatic veins. GALLBLADDER: Gallstones. Borderline wall thickening. No pericholecystic fluid. ULTRASOUND-DETECTED FERRER'S SIGN: Negative. INTRAHEPATIC DUCTS AND COMMON DUCT: CBD and intrahepatic ducts normal caliber. No filling defects. INFERIOR VENA CAVA: Normal flow. AORTA: No aneurysm. RIGHT KIDNEY: Normal size. Normal echogenicity. No solid or suspicious masses. No hydronephrosis. No calcifications. PERITONEAL AND RIGHT PLEURAL SPACE: No ascites or effusions. OTHER: No other significant findings. IMPRESSION: Gallstones. Borderline gallbladder wall thickening. TECHNICAL DOCUMENTATION: JOB ID: [id number]- All Rights Reserved
--- NOTE | 2017-07-31 18:33 | EKG REPORT ---
SEVERITY:- ABNORMAL ECG - SINUS RHYTHM FIRST DEGREE AV BLOCK PROBABLE LEFT ATRIAL ABNORMALITY LEFT ANTERIOR FASCICULAR BLOCK CONSIDER ANTERIOR INFARCT : Confirmed by: Gavin Cardenas MD 31-Jul-2017 18:32:35
[2017-07-31 20:08] VITALS: BP 125/88
[2017-07-31] MEDS ORDERED: MORPHINE SULFATE 10 MG/ML INJ IV ONE (21:50)
[2017-08-01 14:17] LABS: PATH REVIEW PATHOLOGIST REVIEWED
== END 2017-07-31 21:49 | disposition short-term general hospital (02) ==
LOC: ER 13:15
DX: K80.50 Calculus of bile duct without cholangitis or cholecystitis without obstruction (principal); I44.0 Atrioventricular block, first degree; R11.2 Nausea with vomiting, unspecified; R10.811 Right upper quadrant abdominal tenderness; R10.816 Epigastric abdominal tenderness; R07.1 Chest pain on breathing; I10 Essential (primary) hypertension; Z98.890 Other specified postprocedural states
CPT/HCPCS: 93005; 99285; 96361; 96374; 36415; 87086; 82553; 82550; 83690; 80307 ×2; 85025; 87088; 80053; 81001; 84484; 87186; 71010; 76705; 93010; J2270; J7030

== ENCOUNTER 2018-01-18 14:06 | Emergency (ER) | payer MEDICARE, MEDICAID ==
--- NOTE | 2018-01-18 14:24 | RADIOLOGY REPORT (SQ) ---
EXAM DESCRIPTION: CHEST SINGLE VIEW COMPLETED DATE/TIME: 01/18/2018 2:15 pm REASON FOR STUDY: STROKE ALERT COMPARISON: 07/31/2017 EXAM PARAMETERS: NUMBER OF VIEWS: One view. TECHNIQUE: Single frontal radiographic view of the chest acquired. RADIATION DOSE: NA LIMITATIONS: None. FINDINGS: LUNGS AND PLEURA: No opacities, masses or pneumothorax. No pleural effusion. MEDIASTINUM AND HILAR STRUCTURES: No masses. Contour normal. HEART AND VASCULAR STRUCTURES: Stable cardiomegaly BONES: No acute findings. HARDWARE: None in the chest. OTHER: No other significant finding. IMPRESSION: NO ACUTE RADIOGRAPHIC FINDING IN THE CHEST. TECHNICAL DOCUMENTATION: JOB ID: [id number]- All Rights Reserved Reading location - IP/workstation name: [email or web address]
--- NOTE | 2018-01-18 14:27 | RADIOLOGY REPORT (SQ) ---
EXAM DESCRIPTION: CT HEAD WITHOUT COMPLETED DATE/TIME: 01/18/2018 2:18 pm REASON FOR STUDY: bed 9 stroke alert COMPARISON: 05/19/2017. TECHNIQUE: Axial images acquired through the brain without intravenous contrast. Images reviewed wi th bone, brain and subdural windows. Images stored on PACS. All CT scanners at this facility use dose modulation, iterative reconstruction, and/or weight based d osing when appropriate to reduce radiation dose to as low as reasonably achievable (ALARA). [facility]: Dose Right [facility]: CareDose [facility]: Dose Right [facility]: Teradose 4D [facility]: [employer] RADIATION DOSE: mGy. LIMITATIONS: None. FINDINGS: VENTRICLES: Prominent. CEREBRUM: No masses. No hemorrhage. No midline shift. Areas of low density in the white matter mos t likely due to chronic micro-vascular ischemic change. No evidence for acute infarction. CEREBELLUM: No masses. No hemorrhage. No alteration of density. No evidence for acute infarction. EXTRAAXIAL SPACES: Mild age-related involutional change. No fluid collections. No masses. ORBITS AND GLOBE: No intra- or extraconal masses. Normal contour of globe without masses. CALVARIUM: No fracture. PARANASAL SINUSES: No fluid or mucosal thickening. SOFT TISSUES: No mass or hematoma. OTHER: No other significant finding. IMPRESSION: MILD CHRONIC CHANGES OF ATROPHY AND MICROVASCULAR ISCHEMIA. NO ACUTE PROCESS. EVIDENCE OF ACUTE STROKE: NO. COMMENT: Pertinent positive or negative findings of the imaging study reported as a CRITICAL EXAM t o ER PROVIDER at14:21 on 01/18/2018. Category of Critical Exam: Stroke protocol. TECHNICAL DOCUMENTATION: JOB ID: [id number] Quality ID # [id number]: Final reports with documentation of one or more dose reduction techniques (e.g., Au tomated exposure control, adjustment of the mA and/or kV according to patient size, use of iterative reconstruction technique) 2010 [employer]- All Rights Reserved Reading location - IP/workstation name: [email or web address]
[2018-01-18 14:30] LABS: ABSOLUTE EOSINOPHILS # (AUTO) 0.2 10^3/uL (0.0-0.6); ABSOLUTE LYMPHOCYTES (AUTO) 2.7 10^3/uL (0.5-4.7); ABSOLUTE MONOCYTES (AUTO) 0.4 10^3/uL (0.1-1.4); ABSOLUTE NEUT (AUTO) 3.1 10^3/uL (1.7-8.2); BASOPHILS % (AUTO) 0.2 % (0-2); EOSINOPHILS % (AUTO) 2.4 % (0-6); HEMATOCRIT 43.6 % (36.0-47.0); HEMOGLOBIN 13.9 g/dL (12.0-15.5); MEAN CORPUSCULAR HEMOGLOBIN 27.4 pg (27.0-33.4); MEAN CORPUSCULAR HGB CONC 31.9 g/dL (32.0-36.0); MEAN CORPUSCULAR VOLUME 86 fl (80-97); MONOCYTES % (AUTO) 6.9 % (3-13); PLATELET COUNT 144 10^3/uL (150-450); RED BLOOD COUNT 5.08 10^6/uL (3.72-5.28); RED CELL DISTRIBUTION WIDTH 17.7 % (11.5-14.0); SEGMENTED NEUTROPHILS % (AUTO) 48.5 % (42-78); TOTAL CELLS COUNTED % (AUTO) 100 %; WHITE BLOOD COUNT 6.4 10^3/uL (4.0-10.5)
[2018-01-18 14:32] LABS: INTERNATIONAL RATION (INR) 0.88; PROTHROMBIN TIME 12.6 SEC (11.4-15.4)
[2018-01-18 14:33] LABS: PARTIAL THROMBOPLASTIN TIME 27.8 SEC (23.5-35.8)
[2018-01-18 14:44] LABS: BLOOD UREA NITROGEN 14 mg/dL (7-20); GLUCOSE 180 mg/dL (75-110)
[2018-01-18 14:45] LABS: ALANINE AMINOTRANSFERASE 22 U/L (9-52); ALBUMIN 4.6 g/dL (3.5-5.0); ALKALINE PHOSPHATASE 113 U/L (38-126); ASPARTATE AMINO TRANSFERASE 22 U/L (14-36); BILIRUBIN,DIRECT 0.1 mg/dL (0.0-0.4); BILIRUBIN,TOTAL 0.6 mg/dL (0.2-1.3); CARBON DIOXIDE 21 mmol/L (22-30); CHLORIDE 101 mmol/L (98-107); CREATINE KINASE 38 U/L (30-135); POTASSIUM 3.6 mmol/L (3.6-5.0); SODIUM 141.5 mmol/L (137-145)
[2018-01-18] MEDS ORDERED: ASPIRIN 325 MG TABLET PO ONE (14:54)
--- NOTE | 2018-01-18 14:54 | ER Document Report ---
ED Neuro Symptoms/Deficit - General Mode of Arrival: Ambulatory Information source: Patient TRAVEL OUTSIDE OF THE [place] IN LAST 30 DAYS: No <ZHAO MORALES - Last Filed: 01/18/18 20:35> <ISMAEL PAINTING - Last Filed: 01/18/18 23:36> - General Chief Complaint: Altered Mental Status Stated Complaint: POSSIBLE STROKE Time Seen by Provider: 01/18/18 14:52 Notes: Patient is an 87 year old female that presents to the emergency department today with complaints of a "slight" headache on arrival here. According to EMS , the patient had a syncopal episode prior to arrival. Patient has no complaints other than this "slight headache". When the patient's son arrived, he describes the patient yelling out for help, then violently shaking all 4 extremities, grunting, and turning red except a slightly blue area around the lips. Son states this is similar to a seizure she has had in the past. Patient denies any chest pain, chills, fevers, nausea, or vomiting. 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 - Immunizations Hx Diphtheria, Pertussis, Tetanus Vaccination: No Hx Pneumococcal Vaccination: 11/23/14 <ZHAO MORALES - Last Filed: 01/18/18 20:35> Review of Systems - Review of Systems Constitutional: No symptoms reported EENT: No symptoms reported Cardiovascular: No symptoms reported Respiratory: No symptoms reported Gastrointestinal: No symptoms reported Genitourinary: No symptoms reported Female Genitourinary: No symptoms reported Musculoskeletal: No symptoms reported Skin: No symptoms reported Hematologic/Lymphatic: No symptoms reported Neurological/Psychological: See HPI, Seizure - according to son at bedside, Headaches -: Yes All other systems reviewed and negative <ZHAO MORALES - Last Filed: 01/18/18 20:35> Physical Exam <ZHAO MORALES - Last Filed: 01/18/18 20:35> <ISMAEL PAINTING - Last Filed: 01/18/18 23:36> - Vital signs Vitals: Resp BP Pulse Ox 23 H 122/111 H 89 L 01/18/18 14:20 01/18/18 14:20 01/18/18 14:20 - Notes Notes: PHYSICAL EXAM GENERAL: Alert, interacts well. No acute distress. HEAD: Normocephalic, atraumatic. EYES: Pupils equal, round, and reactive to light. Extraocular movements intact. ENT: Oral mucosa moist, tongue midline. NECK: Full range of motion. Supple. Trachea midline. LUNGS: Clear to auscultation bilaterally, no wheezes, rales, or rhonchi. No respiratory distress. HEART: Regular rate and rhythm. No murmurs, gallops, or rubs. ABDOMEN: Soft, non-tender. Non-distended. Bowel sounds present in all 4 quadrants. No guarding, rigidity, or rebound. EXTREMITIES: Moves all 4 extremities spontaneously. No edema, radial and dorsalis pedis pulses 2/4 bilaterally. No cyanosis. NEUROLOGICAL: Alert and oriented x2. Alert to person and place, disoriented to time stating it is "19 something". Able to guess president when given a list to choose from. Normal speech. Heel-cha test intact bilaterally, [id number] test intact bilaterally. PSYCH: Normal affect, normal mood. SKIN: Warm, dry, normal turgor. Ecchymosis in various stages of healing to bilateral upper extremities. (ZHAO MORALES) Course - Laboratory Result Diagrams: 01/18/18 13:38 01/18/18 13:38 <ZHAO MORALES - Last Filed: 01/18/18 20:35> - Laboratory Result Diagrams: 01/18/18 13:38 01/18/18 13:38 <ISMAEL PAINTING - Last Filed: 01/18/18 23:36> - Re-evaluation Re-evalutation: 01/18/18 19:32 ECG shows slightly low platelet count 144 otherwise unremarkable, coags normal, CMP does show slightly elevated anion gap at 20 and slightly low CO2 at 21, glucose is elevated 204, cardiac enzymes negative, urinalysis shows small blood but no ketones and no signs of infection, chest x-ray shows no acute process, CT scan of the head shows chronic mild changes of atrophy and microvascular ischemia. Initially the differential was quite broad in this patient until her son came in and told us that she did not simply pass out but she actually shouted and then convulsed for approximately a minute while turning red and slightly blue around her lips and then she collapsed and became unresponsive, she returned to her baseline for EMS and was completely normal by the time I saw her. Son relates that this happened once approximately a year ago. She was diagnosed with a TIA at that point however given the negative workup today and that description it does sound quite consistent with seizures. I see no indication for admission tonight however she will need to be seen by neurologist as an outpatient. Son knows to bring her back should she have another episode in the next 24 hours or if her seizure she never last more than 5 minutes or she not return to baseline afterwards. (ISMAEL PAINTING) - Vital Signs Vital signs: Temp Pulse Resp BP Pulse Ox 98.1 F 58 L 20 148/75 H 93 01/18/18 14:44 01/18/18 18:00 01/18/18 18:01 01/18/18 18:01 01/18/18 18:01 - Laboratory Laboratory results interpreted by me: 01/18/18 01/18/18 01/18/18 13:38 13:38 14:21 [facility] 31.9 L RDW 17.7 H Plt Count 144 L Carbon Dioxide 21 L Anion Gap 20 H Glucose 180 H POC Glucose 204 H Urine Blood 01/18/18 15:19 [facility] RDW Plt Count Carbon Dioxide Anion Gap Glucose POC Glucose Urine Blood SMALL H - EKG Interpretation by Me Additional EKG results interpreted by me: 01/18/18 19:38 EKG shows sinus rhythm at a rate of 63, first-degree AV block, left anterior hemiblock, nonsignificant ST segment elevations in V3, no other contiguous ST segment elevations, poor R-wave progression, no reciprocal changes per my interpretation. (ISMAEL PAINTING) Discharge <ZHAO MORALES - Last Filed: 01/18/18 20:35> <ISMAEL PAINTING - Last Filed: 01/18/18 23:36> - Discharge Clinical Impression: Seizure Hypertension Qualifiers: Hypertension type: essential hypertension Qualified Code(s): I10 - Essential ( primary) hypertension Condition: Stable Disposition: HOME, SELF-CARE Additional Instructions: Today you had a seizure. It sounds very similar to the episode she had one year ago when you were diagnosed with a TIA. I suspect that was also a seizure. It is very important that you follow-up with a neurologist as an outpatient. They will tell you whether or not you need further studies such as an MRI or an EEG. Please return to the emergency department should you have another episode like this in the next 24 hours, if the episode last more than 5 minutes or you do not return to normal afterwards. Referrals: LUIS FELIPE HOPE MD [Primary Care Provider] - Follow up in 3-5 days TANISHA LAUREN MD [NO LOCAL MD] - Follow up as needed Scribe Attestation: 01/18/18 23:36 I personally performed the services described in the documentation, reviewed and edited the documentation which was dictated to the scribe in my presence, and it accurately records my words and actions. (ISMAEL PAINTING) Scribe Documentation - Scribe Written by Scribe:: Joaquin Lebron, [id number] acting as scribe for :: Ginna <ZHAO MORALES - Last Filed: 01/18/18 20:35>
[2018-01-18 14:56] LABS: CREATINE KINASE MB 0.98 ng/mL (<4.55)
[2018-01-18 14:59] LABS: TROPONIN I < 0.012 ng/mL
[2018-01-18 15:02] LABS: ANION GAP 20 (5-19)
[2018-01-18 15:42] LABS: AMORPHOUS SEDIMENT,URINE TRACE /HPF; APPEARANCE,URINE SLIGHTLY-CLOUDY; BILIRUBIN,URINE NEGATIVE (NEGATIVE); COLOR,URINE STRAW; GLUCOSE, URINE NEGATIVE (NEGATIVE); KETONES,URINE NEGATIVE (NEGATIVE); LEUKOCYTE ESTERASE,URINE NEGATIVE (NEGATIVE); NITRITE,URINE NEGATIVE (NEGATIVE); PROTEIN,URINE NEGATIVE (NEGATIVE); URINE SPECIFIC GRAVITY 1.006; UROBILINOGEN,URINE NEGATIVE mg/dL (<2.0)
[2018-01-18] MEDS ORDERED: ACETAMINOPHEN 325 MG TABLET PO ONE (17:04)
--- NOTE | 2018-01-18 21:58 | EKG REPORT ---
SEVERITY:- ABNORMAL ECG - SINUS RHYTHM FIRST DEGREE AV BLOCK LEFT ANTERIOR FASCICULAR BLOCK CONSIDER ANTERIOR INFARCT : Confirmed by: Franck Le 18-Jan-2018 21:57:55
[2018-01-19 01:04] VITALS: BP 118/67
== END 2018-01-18 20:30 | disposition home or self-care (01) ==
LOC: ER 14:06
DX: R56.9 Unspecified convulsions (principal); I10 Essential (primary) hypertension; R51 Headache; R58 Hemorrhage, not elsewhere classified; I44.0 Atrioventricular block, first degree; I67.82 Cerebral ischemia; Z86.73 Personal history of transient ischemic attack (TIA), and cerebral infarction without residual deficits
CPT/HCPCS: 93005; 99285; 51701; 36415; 82553; 82962; 82550; 85025; 85610; 85730; 80053; 81001; 84484; 71045; 70450; 93010; A9270 ×2

== ENCOUNTER 2018-02-26 14:05 | Emergency (ER) | payer MEDICARE, MEDICAID ==
--- NOTE | 2018-02-26 14:52 | ER Document Report ---
ED General <VASQUEZ COLLINS - Last Filed: 02/26/18 23:17> - General Mode of Arrival: Medic Information source: Patient, [facility] Records TRAVEL OUTSIDE OF THE [place] IN LAST 30 DAYS: No <CHI SUE - Last Filed: 03/01/18 14:04> - General Stated Complaint: FALL,EYE INJURY Time Seen by Provider: 02/26/18 14:37 Notes: This 87-year-old female patient had unwitnessed fall today. She has considerable swelling and bruising to the right lateral orbital head and upper zygomatic lateral face. There is some ecchymosis to the eyelids, the eyes are not swollen shut at this point. She was seen here on 01/18/2018 at which time her son reported she shouted out, began shaking, and fell to the floor. She was diagnosed with probable seizure disorder at that time. She was supposed to follow with neurology, at this time cannot tell if that occurred. Patient is too demented to give a clear history, she has no recollection of the events today and she is not sure who she lives with. She does have multiple bruising to all of her extremities in various stages of healing. Patient's relative came later and reports that she probably fell sometime during the night at about 10:00 this morning he noticed the facial injuries. Later in the morning or early afternoon home health aide came by and saw the injury and had her sent to the hospital. He did not give her her Lasix today. She did follow-up with her primary care provider after the previous visit this suggested seizures. She has an appointment with [facility] neurology next Friday. (VASQUEZ COLLINS) Patient is an 87-year-old female with a history of CHF, hypertension, and dementia presents to the emergency department due to a fall. Patients history is limited due to dementia. Patient only complains of shoulder pain and back pain. Patient was recently seen and discharged from the emergency department on 2017 due to possible seizure activity and a fall. (CHI SUE) - Related Data Allergies/Adverse Reactions: No Known Allergies Allergy (Unverified 11/21/14 18:30) Past Medical History - General Information source: Patient Cannot obtain history due to: Dementia - Social History Smoking Status: Unknown if Ever Smoked Family History: Reviewed & Not Pertinent, Hypertension - Past Medical History Cardiac Medical History: Reports: Hx Congestive Heart Failure - Chronic diastolic grade 2/4, Hx Hypercholesterolemia, Hx Hypertension Endocrine Medical History: Reports: Hx Hypothyroidism GI Medical History: Reports: Hx Gastroesophageal Reflux Disease Musculoskeltal Medical History: Reports Hx Arthritis Psychiatric Medical History: Reports: Hx Dementia, Hx Depression Past Surgical History: Reports: Hx Abdominal Surgery - hernia repair, Hx Hysterectomy, Other - Cholecystostomy tube placement 2016. - Immunizations Hx Diphtheria, Pertussis, Tetanus Vaccination: No Hx Pneumococcal Vaccination: 11/23/14 <CHI SUE - Last Filed: 03/01/18 14:04> Review of Systems - Review of Systems Constitutional: No symptoms reported EENT: No symptoms reported Cardiovascular: No symptoms reported Respiratory: No symptoms reported Gastrointestinal: No symptoms reported Genitourinary: No symptoms reported Female Genitourinary: No symptoms reported Musculoskeletal: See HPI Skin: No symptoms reported Hematologic/Lymphatic: No symptoms reported Neurological/Psychological: No symptoms reported -: Yes All other systems reviewed and negative <CHI SUE - Last Filed: 03/01/18 14:04> Physical Exam <VASQUEZ COLLINS - Last Filed: 02/26/18 23:17> - General General appearance: Appears well In distress: None - HEENT Head: Tenderness - right perioribital region. Eyes: Periorbital ecchymosis - Right, Periorbital edema - right, as well as over right zygomatic arch. Neck: Normal - Respiratory Respiratory status: No respiratory distress Chest status: Nontender - Cardiovascular Rhythm: Regular - Abdominal Inspection: Normal Distension: No distension Bowel sounds: Normal Tenderness: Nontender Organomegaly: No organomegaly - Extremities General upper extremity: Normal ROM. No: Edema General lower extremity: Other - cool to touch Hip: Nontender - no tenderness with with internal and external rotation of foot bilaterally. Foot: Tender - bilaterally, Other - old bruise to the dorsal aspect of left great toe. - Psychological Associated symptoms: Normal affect, Normal mood - Skin Skin Moisture: Dry Irregularity with: Other - multiple bruises across BLE and BUE from previous fall. <CHI SUE - Last Filed: 03/01/18 14:04> - Vital signs Vitals: Resp Pulse Ox 20 94 02/26/18 14:24 02/26/18 14:24 - Neurological Notes: Demented (CHI SUE) Course - Laboratory Result Diagrams: 02/26/18 14:57 02/26/18 14:57 - Diagnostic Test Radiology reviewed: Image reviewed - There is extensive soft tissue swelling over the right lateral orbit of her zygomatic area., Reports reviewed - Cervical spine shows chronic degenerative changes without acute process. CT of the head is read as no intracranial abnormalities and no fractures. - EKG Interpretation by Me EKG shows normal: Sinus rhythm, [place], Intervals, QRS Complexes, ST-T Waves Rate: Normal - 60 Rhythm: NSR, APC's [place]/QRS: LAHB/LAFB <VASQUEZ COLLINS - Last Filed: 02/26/18 23:17> - Laboratory Result Diagrams: 02/26/18 14:57 02/26/18 14:57 <CHI SUE - Last Filed: 03/01/18 14:04> - Vital Signs Vital signs: Temp Pulse Resp BP Pulse Ox 97.9 F 12 176/77 H 94 02/26/18 19:52 02/26/18 19:10 02/26/18 19:10 02/26/18 19:10 - Laboratory Laboratory results interpreted by la: 02/26/18 02/26/18 14:57 14:57 RDW 16.7 H Plt Count 130 L Seg Neutrophils % 80.9 H Carbon Dioxide 31 H Glucose 115 H Total Protein 5.9 L Discharge <VASQUEZ COLLINS - Last Filed: 02/26/18 23:17> <CHI SUE - Last Filed: 03/01/18 14:04> - Discharge Clinical Impression: Syncope and collapse, Falls frequently Contusion of face Qualifiers: Encounter type: initial encounter Qualified Code(s): S00.83XA - Contusion of other part of head, initial encounter Dementia Qualifiers: Dementia type: Alzheimer's disease Alzheimer's disease onset: late-onset Dementia behavioral disturbance: without behavioral disturbance Qualified Code(s ): G30.1 - Alzheimer's disease with late onset Condition: Stable Disposition: HOME, SELF-CARE Additional Instructions: You were seen here about 5 weeks ago for what sounded like seizures. Your syncopal episode today resulting in the head and face contusion may have been due to a seizure. You will be started on seizure medication at this time. Be sure to follow-up with [facility] neurology next week as scheduled. Use ice packs to the contusions to help limit the amount of swelling. RETURN TO THE EMERGENCY ROOM IF ANY NEW OR WORSENING SYMPTOMS. Prescriptions: Levetiracetam [Keppra 500 mg Tablet] 500 mg PO Q12 #20 tablet Referrals: MAI RODRIGUEZ, GEOPHYSICIST [Primary Care Provider] - Follow up as needed [facility] Neurology [Provider Group] - 03/04/18 Scribe Attestation: 02/26/18 23:18 I personally performed the services described in the documentation, reviewed and edited the documentation which was dictated to the scribe in my presence, and it accurately records my words and actions. (VASQUEZ COLLINS) Scribe Documentation - Scribe Written by Joaquin:: Joaquin Matias, 02/26/2018 14:52 acting as scribe for :: Ab <CHI SUE - Last Filed: 03/01/18 14:04>
[2018-02-26 15:08] LABS: ABSOLUTE LYMPHOCYTES (AUTO) 0.8 10^3/uL (0.5-4.7); ABSOLUTE MONOCYTES (AUTO) 0.4 10^3/uL (0.1-1.4); ABSOLUTE NEUT (AUTO) 5.2 10^3/uL (1.7-8.2); BASOPHILS % (AUTO) 0.2 % (0-2); EOSINOPHILS % (AUTO) 0.3 % (0-6); HEMATOCRIT 36.3 % (36.0-47.0); HEMOGLOBIN 12.1 g/dL (12.0-15.5); MEAN CORPUSCULAR HEMOGLOBIN 28.9 pg (27.0-33.4); MEAN CORPUSCULAR HGB CONC 33.3 g/dL (32.0-36.0); MEAN CORPUSCULAR VOLUME 87 fl (80-97); MONOCYTES % (AUTO) 5.6 % (3-13); PLATELET COUNT 130 10^3/uL (150-450); RED BLOOD COUNT 4.19 10^6/uL (3.72-5.28); RED CELL DISTRIBUTION WIDTH 16.7 % (11.5-14.0); SEGMENTED NEUTROPHILS % (AUTO) 80.9 % (42-78); TOTAL CELLS COUNTED % (AUTO) 100 %; WHITE BLOOD COUNT 6.4 10^3/uL (4.0-10.5)
--- NOTE | 2018-02-26 15:20 | RADIOLOGY REPORT (SQ) ---
EXAM DESCRIPTION: CT HEAD WITHOUT COMPLETED DATE/TIME: 02/26/2018 3:10 pm REASON FOR STUDY: fall, left face, forehead contusion, dementia COMPARISON: 01/18/2018 TECHNIQUE: Axial images acquired through the brain without intravenous contrast. Images reviewed wi th bone, brain and subdural windows. Additional sagittal and coronal reconstructions were generated. Images stored on PACS. All CT scanners at this facility use dose modulation, iterative reconstruction, and/or weight based d osing when appropriate to reduce radiation dose to as low as reasonably achievable (ALARA). [facility]: Dose Right [facility]: CareDose [facility]: Dose Right [facility]: Teradose 4D [facility]: [employer] RADIATION DOSE: CT Rad equipment meets quality standard of care and radiation dose reduction techniq ues were employed. CTDIvol: 53.2 mGy. DLP: 1017 mGy-cm.mGy. LIMITATIONS: None. FINDINGS: VENTRICLES: Prominent. CEREBRUM: No masses. No hemorrhage. No midline shift. Areas of low density in the white matter mos t likely due to chronic micro-vascular ischemic change. No evidence for acute infarction. CEREBELLUM: No masses. No hemorrhage. No alteration of density. No evidence for acute infarction. EXTRAAXIAL SPACES: Age-related involutional change. No fluid collections. No masses. ORBITS AND GLOBE: No intra- or extraconal masses. Normal contour of globe without masses. CALVARIUM: No fracture. PARANASAL SINUSES: No fluid or mucosal thickening. SOFT TISSUES: No mass or hematoma. OTHER: No other significant finding. IMPRESSION: CHRONIC CHANGES OF ATROPHY AND MICROVASCULAR ISCHEMIA. NO ACUTE PROCESS. EVIDENCE OF ACUTE STROKE: NO. TECHNICAL DOCUMENTATION: JOB ID: [id number] Quality ID # [id number]: Final reports with documentation of one or more dose reduction techniques (e.g., Au tomated exposure control, adjustment of the mA and/or kV according to patient size, use of iterative reconstruction technique) 2010 [employer]- All Rights Reserved Reading location - IP/workstation name: [email or web address]
--- NOTE | 2018-02-26 15:22 | RADIOLOGY REPORT (SQ) ---
EXAM DESCRIPTION: CT CERVICAL SPINE WITHOUT COMPLETED DATE/TIME: 02/26/2018 3:10 pm REASON FOR STUDY: fall, left face, forehead contusion, dementia COMPARISON: None. TECHNIQUE: Axial images acquired through the cervical spine without intravenous contrast. Images re viewed with lung, soft tissue and bone windows. Reconstructed coronal and sagittal MPR images review ed. Images stored on PACS. All CT scanners at this facility use dose modulation, iterative reconstruction, and/or weight based d osing when appropriate to reduce radiation dose to as low as reasonably achievable (ALARA). [facility]: Dose Right [facility]: CareDose [facility]: Dose Right [facility]: Teradose 4D [facility]: [employer] RADIATION DOSE: CT Rad equipment meets quality standard of care and radiation dose reduction techniq ues were employed. CTDIvol: 18.0 mGy. DLP: 431 mGy-cm. mGy. LIMITATIONS: None. FINDINGS: ALIGNMENT: Grade 1 anterolisthesis C4 relative to C5. MINERALIZATION: Normal. VERTEBRAL BODIES: No fractures or dislocation. DISCS: Multilevel disc space narrowing with osteophytes. FACETS, LATERAL MASSES, POSTERIOR ELEMENTS: Facet arthropathy. No fractures. No dislocation. No ac justin findings. HARDWARE: None in the spine. VISUALIZED RIBS: No fractures. LUNG APICES AND SOFT TISSUES: No significant or acute findings. OTHER: No other significant finding. IMPRESSION: CHRONIC DEGENERATIVE CHANGES. NO ACUTE FINDINGS. TECHNICAL DOCUMENTATION: JOB ID: [id number] Quality ID # [id number]: Final reports with documentation of one or more dose reduction techniques (e.g., Au tomated exposure control, adjustment of the mA and/or kV according to patient size, use of iterative reconstruction technique) 2010 [employer]- All Rights Reserved Reading location - IP/workstation name: [email or web address]
[2018-02-26 15:27] LABS: ALANINE AMINOTRANSFERASE 26 U/L (9-52); ALBUMIN 3.7 g/dL (3.5-5.0); ALKALINE PHOSPHATASE 89 U/L (38-126); ANION GAP 8 (5-19); ASPARTATE AMINO TRANSFERASE 28 U/L (14-36); BILIRUBIN,DIRECT 0.3 mg/dL (0.0-0.4); BILIRUBIN,TOTAL 0.6 mg/dL (0.2-1.3); BLOOD UREA NITROGEN 17 mg/dL (7-20); CALCIUM 9.1 mg/dL (8.4-10.2); CARBON DIOXIDE 31 mmol/L (22-30); CHLORIDE 101 mmol/L (98-107); CREATINE KINASE 64 U/L (30-135); GLUCOSE 115 mg/dL (75-110); POTASSIUM 4.2 mmol/L (3.6-5.0); SODIUM 140.1 mmol/L (137-145); TOTAL PROTEIN 5.9 g/dL (6.3-8.2)
[2018-02-26] MEDS ORDERED: LEVETIRACETAM 500 MG TABLET PO ONE (17:05)
[2018-02-26 18:33] LABS: APPEARANCE,URINE CLEAR; BILIRUBIN,URINE NEGATIVE (NEGATIVE); COLOR,URINE STRAW; GLUCOSE, URINE NEGATIVE (NEGATIVE); KETONES,URINE NEGATIVE (NEGATIVE); LEUKOCYTE ESTERASE,URINE NEGATIVE (NEGATIVE); NITRITE,URINE NEGATIVE (NEGATIVE); PROTEIN,URINE NEGATIVE (NEGATIVE); URINE SPECIFIC GRAVITY 1.008; UROBILINOGEN,URINE NEGATIVE mg/dL (<2.0)
[2018-02-26 19:12] VITALS: BP 176/77
--- NOTE | 2018-02-26 23:22 | EKG REPORT ---
SEVERITY:- ABNORMAL ECG - SINUS RHYTHM ATRIAL PREMATURE COMPLEX LEFT ANTERIOR FASCICULAR BLOCK : Confirmed by: Franck Le 26-Feb-2018 23:20:50
== END 2018-02-26 21:08 | disposition home or self-care (01) ==
LOC: ER 14:05
DX: S00.83XA Contusion of other part of head, initial encounter (principal); R55 Syncope and collapse; G30.1 Alzheimer's disease with late onset; W18.30XA Fall on same level, unspecified, initial encounter; E78.00 Pure hypercholesterolemia, unspecified; I11.0 Hypertensive heart disease with heart failure; I50.9 Heart failure, unspecified; Z91.81 History of falling; Z90.710 Acquired absence of both cervix and uterus; Z90.49 Acquired absence of other specified parts of digestive tract
CPT/HCPCS: 93005; 99285; 36415; 82550; 85025; 80053; 81001; 84484; 70450; 72125; 93010; A9270